=== PATIENT | female | born 1990 | race Caucasian/White ===

== ENCOUNTER 2016-05-25 10:22 | Emergency (ER) | payer OTHER ==
[~2016-05-25] VITALS: Ht 175.3 cm; Wt 87.7 kg
[2016-05-25 10:31] VITALS: TEMP 37.1; Ht 175.3 cm; Wt 87.7 kg
[2016-05-25] MEDS ORDERED: SODIUM CHLORIDE 0.9% 1000ML 2,000 ML IV STA (11:08)
[2016-05-25] MEDS ORDERED: MoRPHine SULFATE 4 MG/ML 1 ML CARP\\VIAL IV STA (11:08)
[2016-05-25] MEDS ORDERED: ONDANSETRON INJ 2 MG/ML 2 ML VIAL IV STA (11:08)
[2016-05-25] MEDS ORDERED: KETOROLAC TROMETHAMINE 30 MG/ML VIAL IV STA (11:08)
[2016-05-25 11:40] LABS: URINE APPEARANCE CLEAR (CLEAR); URINE BILIRUBIN NEG (NEG); URINE COLOR YELLOW; URINE NITRITE POS (NEG); UROBILINOGEN NEG (NEG)
[2016-05-25 11:44] LABS: MANUAL MICROSCOPIC REQUIRED? NO; REVIEW REQ? NO
[2016-05-25] MEDS ORDERED: CIPROFLOXACIN 400MG / 200ML D5W IV STA (11:48)
[2016-05-25 12:02] LABS: BASO % 0.2 %; BASO ABS # 0.02 K/uL (0-0.2); COMPLETE YES; EOS % 1.1 %; HEMATOCRIT 36.4 % (37-47); IG% 0.3 %; LYMPH % 6.8 %; LYMPH ABS # 0.87 K/uL (1.2-3.4); MEAN CELL VOLUME 83.7 fL (80-100); MEAN CORPUSCULAR HEMOGLOBIN 28.5 pg (25-34); MEAN CORPUSCULAR HGB CONC 34.1 g/dl (32-36); MEAN PLATELET VOLUME 9.4 fL (7.4-10.4); MONO % 5.4 %; NEUT % 86.2 %; PLATELET COUNT 222 K/uL (130-400); RED BLOOD COUNT 4.35 M/uL (4.2-5.4)
[2016-05-25 12:23] LABS: BUN/CREATININE RATIO 14.9 (10-20); CALCIUM 8.5 mg/dl (8.5-10.1); CREATININE 0.91 mg/dl (0.60-1.20); POTASSIUM 4.6 mmol/L (3.5-5.1)
[2016-05-25] MEDS ORDERED: MoRPHine SULFATE 10 MG/ML CARP/VIAL IV STA (12:48)
[2016-05-25] MEDS ORDERED: ONDA4TAB10 SL (12:55)
[2016-05-25] MEDS ORDERED: OXYC1TAB3 PO (12:55)
[2016-05-25] MEDS ORDERED: CIPR-255 PO (12:55)
--- NOTE | 2016-05-25 12:55 | EMERGENCY ROOM VISIT NOTE ---
ED Visit Note First contact with patient: 10:46 CHIEF COMPLAINT: Right flank pain and urinary symptoms 3-4 days. HISTORY OF PRESENT ILLNESS: Patient is an otherwise healthy 26-year-old white female who presents to the emergency department accompanied by a male friend for evaluation of right flank pain and urinary symptoms. She states that she was treated with Macrobid and Pyridium for a UTI on May 13. She had urinary frequency, urgency and gross hematuria at that time. She had developed some low back pain at the time that she started the antibiotics, but reports that her symptoms got better. She did 5 days of Macrobid. She states that after finishing the antibiotics, she felt better for a few days, then noted a return of cloudy urine, and some dysuria with associated frequency and urgency. She has had progressively worsening stabbing right back pain. It is worse with pressure or with movement. It does not radiate to the flank or abdomen. She began to run a low-grade fever over the last 1-2 days. Temperature was 100.7F orally yesterday. She's been taking Tylenol and ibuprofen for her pain. She rates her discomfort a 6/10. She does have a remote history of kidney stones, and reports urinary problems when she was a child. She denies a history of frequent UTIs or pyelonephritis. She denies any gynecologic symptoms. Last menstrual period was 3 weeks ago. 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 REVIEW OF SYSTEMS: Review of systems as per HPI. All other systems reviewed were negative. 10 systems reviewed. PMH: Electronic medical records are reviewed and summarized as above/below. See Problem List. SOCIAL HISTORY: Patient lives at home. Law school student. Nonsmoker. PHYSICAL EXAM: Vital Signs: Reviewed Nurse's notes. Patient is afebrile. She is slightly tachycardic. CONSTITUTIONAL: Patient is an uncomfortable appearing 26-year-old white female who is awake and alert and in moderate distress due to her right back pain. EYES: Pupils equal, round, reactive to light and accommodation. EOMs intact without nystagmus. Sclera are anicteric. ENT: Tympanic membranes intact, with normal landmarks. External canals are clear. Oral and nasopharynx are clear. Mucous membranes are moist, no lesions , tongue and gums appear normal. NECK: Supple without lymphadenopathy. No thyromegaly. No meningeal signs. Full active range of motion without discomfort. CARDIOVASCULAR: Regular rate and rhythm, with normal S1 and S2, no murmur or gallop or rub is heard. No carotid bruits auscultated. No JVD. Peripheral pulses easily palpable. RESPIRATORY: Breath sounds equal and clear to auscultation without wheezes, rales, or rhonchi heard. Full and equal chest expansion without accessory muscle use or retractions. ABDOMEN: Bowel sounds are present. Well-healed midline surgical scar is noted. Abdomen is soft, nontender and nondistended. Positive right CVA discomfort. INTEGUMENTARY: No lesions or rash, normal skin turgor. LYMPH: No lymphadenopathy. EMERGENCY DEPARTMENT COURSE: The patient was seen and assessed as above. She has no old records for review. IV access was obtained and she was hydrated with normal saline solution. She was medicated with Toradol 30 mg IV, Zofran 4 mg IV, a total of morphine 10 mg IV and Cipro 400 mg IV. CBC with differential , BMP, urinalysis, urine test and urine culture were performed. Laboratory studies reveal a slightly elevated white count at 12,800, electrolytes are within normal limits. Renal function is not elevated. Urinalysis is indicative of infectious process with 2+ occult blood, positive nitrates, leukocyte esterase and WBCs, and 4+ bacteria. Urine test was negative. Urine culture is ordered and is pending. History and presentation were reviewed with attending physician. Her presentation does appear consistent for a pyelonephritis. She does not have significant hematuria on urinalysis, and it was thought that kidney stone was less likely, particularly given the UTI prodromal symptoms over the last couple of weeks. She is slightly tachycardic, but afebrile and otherwise nontoxic in appearance. She has a benign abdominal exam. She is tolerating oral intake. It was felt that she was an appropriate candidate for outpatient therapy. Due to her allergy profile she will be placed on oral Cipro. She was given oxycodone and Zofran for pain and nausea and will continue Tylenol and ibuprofen for fever and pain management. She is unaware of the reaction she had to penicillins and is not sure if she has ever had cephalosporins in the past. Should she fail outpatient management on Cipro, the allergy profile will likely need to be clarified. The patient was discharged to home with her male friend driving in good condition. She was educated on the worrisome signs or symptoms for which she should return to the emergency department. She is discharged home in stable condition. She rated her pain a 4/10 at discharge. Differential diagnoses include UTI, pyelonephritis, renal colic, muscular strain , intercostal neuritis, rib fracture, shingles, acute cholecystitis, cholelithiasis, biliary colic, among others. Problem List Medical Problems: (1) ADD (attention deficit disorder) Status: Chronic (2) Benign tumor of mesentery Status: Resolved Surgical Problems: (1) History of exploratory laparotomy Status: Resolved (2) Hx of tonsillectomy Status: Resolved Current/Historical Medications Scheduled Ciprofloxacin Hcl (Cipro), 500 MG PO BID Scheduled PRN Ondasetron Odt (Zofran Odt), 4 MG SL Q6H PRN for Nausea or Vomiting Oxycodone Immediate Rel Tab (Roxicodone Ir), 1-2 TAB PO Q4H PRN for Severe Pain Allergies Coded Allergies: Penicillins (Unverified Allergy, Severe, CHILDHOOD ALLERGY, SEVERE, WAS HOSPITALIZED., 05/25/16) CHILDHOOD ALLERGY, SEVERE, WAS HOSPITALIZED. Sulfa Antibiotics (Unverified Allergy, Severe, CHILDHOOD ALLERGY, SEVERE, WAS HOSPITALIZED., 05/25/16) CHILDHOOD ALLERGY, SEVERE, WAS HOSPITALIZED. Vital Signs Date Time Temp Pulse Resp B/P Pulse Ox O2 Delivery O2 Flow Rate FiO2 05/25/16 13:35 98 18 117/70 99 05/25/16 11:58 94 16 116/61 05/25/16 10:31 37.1 111 18 127/78 100 Room Air Laboratory Results 05/25/16 11:40 Red Blood Count 4.35, Mean Corpuscular Volume 83.7, Mean Corpuscular Hemoglobin 28.5, Mean Corpuscular Hemoglobin Concent 34.1, Mean Platelet Volume 9.4, Neutrophils (%) (Auto) 86.2, Lymphocytes (%) (Auto) 6.8, Monocytes (%) (Auto) 5.4, Eosinophils (%) (Auto) 1.1, Basophils (%) (Auto) 0.2, Neutrophils # (Auto) 11.04, Lymphocytes # (Auto) 0.87, Monocytes # (Auto) 0.69, Eosinophils # (Auto) 0.14, Basophils # (Auto) 0.02 05/25/16 11:40 Test 05/25/16 11:05 05/25/16 11:40 Urine Color YELLOW Urine Appearance CLEAR (CLEAR) Urine pH 8.0 (4.5-7.5) Urine Specific [place] 1.010 (1.000-1.030) Urine Protein NEG (NEG) Urine Glucose (UA) NEG (NEG) Urine Ketones NEG (NEG) Urine Occult Blood 2+ (NEG) Urine Nitrite POS (NEG) Urine Bilirubin NEG (NEG) Urine Urobilinogen NEG (NEG) Urine Leukocyte Esterase LARGE (NEG) Urine WBC (Auto) >30 /hpf (0-5) Urine RBC (Auto) 0-4 /hpf (0-4) Urine Hyaline Casts (Auto) 5-10 /lpf (0-5) Urine Epithelial Cells (Auto) 10-20 /lpf (0-5) Urine Bacteria (Auto) 4+ (NEG) Urine Test NEG (NEG) White Blood Count 12.80 K/uL (4.8-10.8) Red Blood Count 4.35 M/uL (4.2-5.4) Hemoglobin 12.4 g/dL (12.0-16.0) Hematocrit 36.4 % (37-47) Mean Corpuscular Volume 83.7 fL (80-100) Mean Corpuscular Hemoglobin 28.5 pg (25-34) Mean Corpuscular Hemoglobin Concent 34.1 g/dl (32-36) Platelet Count 222 K/uL (130-400) Mean Platelet Volume 9.4 fL (7.4-10.4) Neutrophils (%) (Auto) 86.2 % Lymphocytes (%) (Auto) 6.8 % Monocytes (%) (Auto) 5.4 % Eosinophils (%) (Auto) 1.1 % Basophils (%) (Auto) 0.2 % Neutrophils # (Auto) 11.04 K/uL (1.4-6.5) Lymphocytes # (Auto) 0.87 K/uL (1.2-3.4) Monocytes # (Auto) 0.69 K/uL (0.11-0.59) Eosinophils # (Auto) 0.14 K/uL (0-0.5) Basophils # (Auto) 0.02 K/uL (0-0.2) RDW Standard Deviation 41.3 fL (36.4-46.3) RDW Coefficient of Variation 13.7 % (11.5-14.5) Immature Granulocyte % (Auto) 0.3 % Immature Granulocyte # (Auto) 0.04 K/uL (0.00-0.02) Anion Gap 6.0 mmol/L (3-11) Est Creatinine Clear Calc Drug Dose 110.7 ml/min Estimated GFR () 100.9 Estimated GFR (Non- 87.1 BUN/Creatinine Ratio 14.9 (10-20) Calcium Level 8.5 mg/dl (8.5-10.1) Medications Administered Medications (Trade) Dose Ordered Sig/Arnoldo Route Start Time Stop Time Status Last Admin Dose Admin Sodium Chloride (Nss 1000ml) 2,000 ml @ 999 mls/hr Q2H1M STAT IV 05/25/16 11:08 05/25/16 13:08 DC 05/25/16 11:08 999 MLS/HR Ketorolac Tromethamine (Toradol Inj) 30 mg NOW STAT IV 05/25/16 11:08 05/25/16 11:10 DC 05/25/16 11:37 30 MG Morphine Sulfate (MoRPHine SULFATE INJ) 4 mg NOW STAT IV 05/25/16 11:08 05/25/16 11:10 DC 05/25/16 11:37 4 MG Ondansetron HCl (Zofran Inj) 4 mg NOW STAT IV 05/25/16 11:08 05/25/16 11:10 DC 05/25/16 11:37 4 MG Ciprofloxacin/ Dextrose (Cipro / D5w) 400 mg NOW STAT IV 05/25/16 11:48 05/25/16 11:52 DC 05/25/16 12:00 400 MG Morphine Sulfate (MoRPHine SULFATE INJ) 6 mg NOW STAT IV 05/25/16 12:48 05/25/16 12:49 DC 05/25/16 13:14 6 MG Departure Information Impression Primary Impression: Pyelonephritis Prescriptions Ondasetron Odt (ZOFRAN ODT) 4 Mg Tab 4 MG SL Q6H Y for Nausea or Vomiting, #10 TAB Prov: Giovana Posadas PA 05/25/16 Ciprofloxacin Hcl (CIPRO) 500 Mg Tab 500 MG PO BID, #20 TAB Prov: Giovana Posadas PA 05/25/16 Oxycodone Immediate Rel Tab (ROXICODONE IR) 5 Mg Tab 1-2 TAB PO Q4H Y for Severe Pain, #25 TAB For Initial Treatment Prov: Giovana Posadas PA 05/25/16 Referrals No Doctor, Assigned (PCP) Patient Instructions A Signature Page, My [facility] Additional Instructions DO NOT drive, drink alcohol, operate machinery, or perform dangerous activities today. You were given medications in the ER that can affect your ability to safely function or operate a vehicle. Ciprofloxacin(Cipro) 500mg: Take one pill twice daily for 10 days for your urine infection. All antibiotics can cause diarrhea. If this occurs and you feel worse or it does not resolve in 1-2 days follow up with your doctor or return to the Emergency Department as this could be signs of serious underlying problems. If you experience any pain in your tendons/joints or any tendon injury return to the ER for re-evaluation. Any medication can cause an allergic reaction, stop the pills immediately and return to the ER for rash, hives, breathing difficulties, or swelling. Zofran(odansetron) tablets 4mg: Take one and allow it to dissolve in your mouth every four hours as needed for nausea or vomiting. Oxycodone (OxyIR) 5mg: Take 1-2 pills every four hours as needed for breakthrough pain. Avoid alcohol, operating machinery or dangerous equipment, working on ladders or roofs, DRIVING, making important decisions, or situations where being under the influence may be dangerous. It is recommended to use an [id number] stool softener such as Colace, 100mg twice daily while taking this medication to avoid constipation. Ibuprofen(Motrin, Advil) may be used for fever or pain. Use 600mg every six hours as needed. Take with food. Avoid using more than 2400mg in a 24 hour period. Do not use 2400mg per day for more than three consecutive days without physician direction. Prolonged inappropriate use can lead to stomach upset or ulcers. This is available over the counter and typically comes in 200mg tablets. (AND/OR) Acetaminophen(Tylenol) may be used for fever or pain. Use 1000mg every eight hours as needed. Avoid using more than 3000mg in a 24 hour period. This is available over the counter. Read all the package inserts or medication information paperwork provided. If you have any questions or concerns call your primary provider, pharmacist or the ER for assistance. Rest and drink plenty of fluids as tolerated. Slow sips of water or sports drinks are recommended instead of large amounts all at once. Continue current medications. Once your stomach is settled start with a clear liquid diet (jello, soup broth, etc.) and then advance as tolerated. You should avoid full, heavy meals for about 24 hrs from the time your symptoms resolved. Return to the ER immediately for worsening or persistent abdominal/back pain, vomiting, fevers, worsening of your condition, or as needed. Follow up with your primary physician within 2-3 days for a recheck of the current condition
[2016-05-25 13:35] VITALS: BP 117/70; PULSE 98; O2SAT 99
[2016-05-25] MEDS ORDERED: AMPH20TA2 PO (17:42)
[2016-06-03] MEDS ORDERED: B-COTAB18 PO (07:48)
[2016-06-03] MEDS ORDERED: MULT-506 PO (07:48)
[2016-06-03] MEDS ORDERED: CPR500 PO (07:49)
[2016-06-06] MEDS ORDERED: OXYC7.5T65 PO (10:17)
== END 2016-05-25 13:36 | disposition home or self-care (01) ==
LOC: C.EDB 10:24
DX: N12 Tubulo-interstitial nephritis, not specified as acute or chronic (principal); A49.8 Other bacterial infections of unspecified site; F90.9 Attention-deficit hyperactivity disorder, unspecified type

== ENCOUNTER 2016-05-25 16:01 | Inpatient (IN) | payer OTHER ==
[~2016-05-25] VITALS: Ht 175.3 cm; Wt 89.7 kg
[~2016-05-25 16:01] MED LIST: CIPR-255 PO; ONDA4TAB10 SL; OXYC1TAB3 PO
[2016-05-25] MEDS ORDERED: VANCOMYCIN INJ 1,350 MG in SODIUM CHLORIDE 0.9% 250ML 250 ML IV STA (16:58)
[2016-05-25] MEDS ORDERED: SODIUM CHLORIDE 0.9% 1000ML 2,000 ML IV STA (16:58)
[2016-05-25] MEDS ORDERED: ONDANSETRON INJ 2 MG/ML 2 ML VIAL IV STA (16:58)
[2016-05-25] MEDS ORDERED: AZTREONAM IV 2,000 MG in DEXTROSE 5% 100ML 100 ML IV STA (16:58)
[2016-05-25] MEDS ORDERED: ACETAMINOPHEN IV 100 ML IV STA (16:58)
[2016-05-25] MEDS ORDERED: AMPH20TA2 PO (17:42)
[2016-05-25 17:58] LABS: BASO ABS # 0.01 K/uL (0-0.2); COMPLETE YES; EOS % 0.1 %; HEMATOCRIT 36.3 % (37-47); IG% 0.4 %; LYMPH % 2.5 %; LYMPH ABS # 0.55 K/uL (1.2-3.4); MEAN CELL VOLUME 82.7 fL (80-100); MEAN CORPUSCULAR HEMOGLOBIN 28.2 pg (25-34); MEAN CORPUSCULAR HGB CONC 34.2 g/dl (32-36); MEAN PLATELET VOLUME 9.2 fL (7.4-10.4); MONO % 4.9 %; NEUT % 92.1 %; PLATELET COUNT 208 K/uL (130-400); RED BLOOD COUNT 4.39 M/uL (4.2-5.4); WHITE BLOOD COUNT 21.63 K/uL (4.8-10.8)
[2016-05-25 18:06] LABS: ALT/SGPT 18 U/L (12-78); BLOOD UREA NITROGEN 13 mg/dl (7-18); BUN/CREATININE RATIO 12.8 (10-20); CALCIUM 8.4 mg/dl (8.5-10.1); CARBON DIOXIDE 23 mmol/L (21-32); CHLORIDE 104 mmol/L (98-107); CREATININE 0.99 mg/dl (0.60-1.20); GLUCOSE 107 mg/dl (70-99); SODIUM 139 mmol/L (136-145)
[2016-05-25 18:10] LABS: ALKALINE PHOSPHATASE 56 U/L (45-117); AST/SGOT 13 U/L (15-37)
[2016-05-25 18:27] LABS: URINE APPEARANCE CLOUDY (CLEAR); URINE BILIRUBIN NEG (NEG); URINE COLOR DK YELLOW; URINE EPITHELIAL CELL AUTO >30 /lpf (0-5); URINE NITRITE NEG (NEG); URINE SPECIFIC GRAVITY 1.018 (1.000-1.030); UROBILINOGEN NEG (NEG); ZZUR CULT IF INDIC CLEAN CATCH YES
[2016-05-25 18:32] LABS: MANUAL MICROSCOPIC REQUIRED? NO; REVIEW REQ? YES
--- NOTE | 2016-05-25 18:50 | EMERGENCY ROOM VISIT NOTE ---
History Report prepared by Petty: Gerson Kerns Under the Supervision of: Dr. Gato Keller M.D. First contact with patient: 16:50 Chief Complaint: ALLERGIC REACTION Stated Complaint: ALLERGIC REACTION Nursing Triage Summary: Pt states she was here early today for kidney infection. They prescribed Cipro, when she got home was shaking and has has numbness and tingling in bilateral hands. Nausea. No c/o itchy, scratchy, swelling in throat/mouth. History of Present Illness The patient is a 26 year old female who presents to the Emergency Room with complaints of a intermittent shakiness beginning just prior to arrival. She was seen in the ED earlier today and was diagnosed with a UTI. She was discharged with Cipro. The patient states that upon arriving home, she began experiencing her symptoms. She has associated nausea, right flank pain and leg numbness. The patient notes that her urinary symptoms began over a week ago, and she was initially on Macrobid. She denies any rashes, vomiting or diarrhea. Source of History: patient Onset: just prior to arrival Quality: other (shakiness) Timing: intermittent Associated Symptoms: + nausea, + numbness (leg), No diarrhea, No rash, No vomiting Note: The patient has associated right flank pain. Review of Systems See HPI for pertinent positives & negatives. A total of 10 systems reviewed and were otherwise negative. Past Medical & Surgical Medical Problems: (1) ADD (attention deficit disorder) (2) Benign tumor of mesentery Surgical Problems: (1) History of exploratory laparotomy (2) Hx of tonsillectomy Family History No pertinent family history stated. Social History Smoking Status: Never Smoker Marital Status: in relationship Occupation Status: [employer] student ([employer]) Current/Historical Medications Scheduled Ciprofloxacin Hcl (Cipro), 500 MG PO BID Scheduled PRN Amphetamine-Dextroamphetamine 20MG (Adderall 20MG), 20 MG PO TID PRN for Focus Ondasetron Odt (Zofran Odt), 4 MG SL Q6H PRN for Nausea or Vomiting Oxycodone Immediate Rel Tab (Roxicodone Ir), 1-2 TAB PO Q4H PRN for Severe Pain Allergies Coded Allergies: Penicillins (Unverified Allergy, Severe, CHILDHOOD ALLERGY, SEVERE, WAS HOSPITALIZED., 05/25/16) CHILDHOOD ALLERGY, SEVERE, WAS HOSPITALIZED. Sulfa Antibiotics (Unverified Allergy, Severe, CHILDHOOD ALLERGY, SEVERE, WAS HOSPITALIZED., 05/25/16) CHILDHOOD ALLERGY, SEVERE, WAS HOSPITALIZED. Physical Exam Vital Signs Date Time Temp Pulse Resp B/P Pulse Ox O2 Delivery O2 Flow Rate FiO2 05/25/16 18:22 132 05/25/16 18:17 135 22 133/76 97 Room Air 05/25/16 16:08 100 Room Air 05/25/16 16:05 38.2 153 18 117/54 99 Room Air Physical Exam GENERAL: Patient is ill appearing and in moderate distress. HEENT: No acute trauma, normocephalic atraumatic, mucous membranes moist, no nasal congestion, no scleral icterus. NECK: No stridor, no adenopathy, no meningismus, trachea is midline. LUNGS: No dyspnea. Clear to auscultation and equal bilaterally. No wheeze, no rhonchi. HEART: Tachycardic rate with a regular rhythm. No murmurs, rubs, gallops appreciated. ABDOMEN: Soft, nontender, bowel sounds positive, no masses appreciated, no peritonitis. BACK: No midline tenderness. Right CVA tenderness to palpation. EXTREMITIES: Normal motion all extremities, no cyanosis, no edema. NEUROLOGIC: Alert and oriented, no acute motor or sensory deficits, no focal weakness, cranial nerves grossly intact. SKIN: No rash, no jaundice, no diaphoresis. Warm to the touch. Medical Decision & Procedures Laboratory Results 05/25/16 17:10 Red Blood Count 4.39, Mean Corpuscular Volume 82.7, Mean Corpuscular Hemoglobin 28.2, Mean Corpuscular Hemoglobin Concent 34.2, Mean Platelet Volume 9.2, Neutrophils (%) (Auto) 92.1, Lymphocytes (%) (Auto) 2.5, Monocytes (%) (Auto) 4.9, Eosinophils (%) (Auto) 0.1, Basophils (%) (Auto) 0.0, Neutrophils # (Auto) 19.91, Lymphocytes # (Auto) 0.55, Monocytes # (Auto) 1.06, Eosinophils # (Auto) 0.02, Basophils # (Auto) 0.01 05/25/16 17:10 Test 05/25/16 17:10 05/25/16 17:19 05/25/16 18:15 White Blood Count 21.63 K/uL (4.8-10.8) Red Blood Count 4.39 M/uL (4.2-5.4) Hemoglobin 12.4 g/dL (12.0-16.0) Hematocrit 36.3 % (37-47) Mean Corpuscular Volume 82.7 fL (80-100) Mean Corpuscular Hemoglobin 28.2 pg (25-34) Mean Corpuscular Hemoglobin Concent 34.2 g/dl (32-36) Platelet Count 208 K/uL (130-400) Mean Platelet Volume 9.2 fL (7.4-10.4) Neutrophils (%) (Auto) 92.1 % Lymphocytes (%) (Auto) 2.5 % Monocytes (%) (Auto) 4.9 % Eosinophils (%) (Auto) 0.1 % Basophils (%) (Auto) 0.0 % Neutrophils # (Auto) 19.91 K/uL (1.4-6.5) Lymphocytes # (Auto) 0.55 K/uL (1.2-3.4) Monocytes # (Auto) 1.06 K/uL (0.11-0.59) Eosinophils # (Auto) 0.02 K/uL (0-0.5) Basophils # (Auto) 0.01 K/uL (0-0.2) RDW Standard Deviation 41.4 fL (36.4-46.3) RDW Coefficient of Variation 13.6 % (11.5-14.5) Immature Granulocyte % (Auto) 0.4 % Immature Granulocyte # (Auto) 0.08 K/uL (0.00-0.02) Anion Gap 12.0 mmol/L (3-11) Est Creatinine Clear Calc Drug Dose 102.8 ml/min Estimated GFR () 91.2 Estimated GFR (Non- 78.6 BUN/Creatinine Ratio 12.8 (10-20) Calcium Level 8.4 mg/dl (8.5-10.1) Total Bilirubin 0.7 mg/dl (0.2-1) Direct Bilirubin 0.2 mg/dl (0-0.2) Aspartate Amino Transf (AST/SGOT) 13 U/L (15-37) Alanine Aminotransferase (ALT/SGPT) 18 U/L (12-78) Alkaline Phosphatase 56 U/L (45-117) Troponin I < 0.015 ng/ml (0-0.045) Total Protein 6.8 gm/dl (6.4-8.2) Albumin 3.4 gm/dl (3.4-5.0) Bedside Lactic Acid Venous 1.60 mmol/L (0.90-1.70) Urine Color DK YELLOW Urine Appearance CLOUDY (CLEAR) Urine pH 5.0 (4.5-7.5) Urine Specific [place] 1.018 (1.000-1.030) Urine Protein 1+ (NEG) Urine Glucose (UA) NEG (NEG) Urine Ketones NEG (NEG) Urine Occult Blood 2+ (NEG) Urine Nitrite NEG (NEG) Urine Bilirubin NEG (NEG) Urine Urobilinogen NEG (NEG) Urine Leukocyte Esterase LARGE (NEG) Urine WBC (Auto) >30 /hpf (0-5) Urine RBC (Auto) 0-4 /hpf (0-4) Urine Hyaline Casts (Auto) 1-5 /lpf (0-5) Urine Epithelial Cells (Auto) >30 /lpf (0-5) Urine Bacteria (Auto) 1+ (NEG) Urine Yeast (Auto) (NONE PRSENT) Laboratory results as reviewed by me. Medications Administered Medications (Trade) Dose Ordered Sig/Arnoldo Route Start Time Stop Time Status Last Admin Dose Admin Sodium Chloride 2,000 ml @ 999 mls/hr Q2H1M STAT IV 05/25/16 16:58 05/25/16 18:58 DC 05/25/16 18:08 999 MLS/HR Acetaminophen (Ofirmev Iv) 100 ml @ 400 mls/hr NOW STAT IV 05/25/16 16:58 05/25/16 17:12 DC 05/25/16 18:05 400 MLS/HR Ondansetron HCl 4 mg 4 mg NOW STAT IV 05/25/16 16:58 05/25/16 17:01 DC 05/25/16 18:08 4 MG Aztreonam 2000 mg/ Dextrose 110 ml @ 100 mls/hr NOW STAT IV 05/25/16 16:58 05/25/16 18:03 DC 05/25/16 18:08 100 MLS/HR Vancomycin HCl/ Sodium Chloride (Vancomycin Inj/ Nss 250ml) 277 ml @ 125 mls/hr NOW STAT IV 05/25/16 16:58 05/25/16 19:10 DC 05/25/16 18:05 125 MLS/HR ED Course 165: The patient was evaluated in room B9. A complete history and physical exam was performed. 165: Ordered Vancomycin HCl 1350 mg/NSS 277 mL @ 125 mL/hr IV, Aztreonam 2000 mg/Dextrose 110 mL @ 100 mL/hr IV, Zofran 4 mg IV, Acetaminophen 100 mL @ 400 mL /hr IV, NSS 2000 mL @ 999 mL/hr IV. 1700: I discussed getting two IVs placed in the patient with nursing staff. 180: I reassessed the patient. She is feeling better. 181: Upon reevaluation, the patient is resting comfortably. Discussed results and treatment plan with the patient. She verbalized understanding and agreement with the treatment plan. The patient will be evaluated for further management. Medical Decision Differential: Renal Colic, Pyelonephritis, Hydronephrosis, Appendicitis, Diverticulitis, Retroperitoneal Bleed/Infection, Aortic Pathology, MSK, Neurologic Pathology, amongst other pathologies entertained. 26 yr old pleasant female diagnosed earlier in day with pyelonephritis and started on cipro. Feeling well and wanted to try outpatient treatment. Notes on awakening just a bit ago with rigors. Does not sound like allergic reaction. She is febrile and tachycardic. Immediately obtained 2 IVs, blood cultures and started broad spectrum ABX. Fluid resus ordered as well. Right CVA TTP and with dirty urine very clearly pyelonephritis. She does not exhibit symptoms consistent with renal stone thus will hold on acute immaging for now while sepsis resus started. Lactic acid and BP good here fortunately. She is quite sick, especially given how rapidly this has progressed from just a few hours earlier. Consults Time Called: 1807 Consulting Physician: [place] [place] Call: 1812 Discussed the patient's case. The patient will be evaluated for further treatment and disposition. Impression Primary Impression: Sepsis Additional Impression: Pyelonephritis Critical Care I have personally spent greater than 35 minutes of critical care time in the direct management of this patient. This was a life/limb threatening event. This includes time spent evaluating patient, direct bedside care, chart review, placing orders, interpretation of diagnostic studies, discussion with consultants, patient, and family members, as well as other required patient management activities. This 35 minutes is in excess of all separately billable procedures. Scribe Attestation The scribe's documentation has been prepared under my direction and personally reviewed by me in its entirety. I confirm that the note above accurately reflects all work, treatment, procedures, and medical decision making performed by me. Departure Information Dispostion Being Evaluated By Hospitalist Referrals No Doctor, Assigned (PCP) Patient Instructions A Signature Page, My [facility]
[2016-05-25 19:04] LABS: POTASSIUM 3.7 mmol/L (3.5-5.1)
[2016-05-25] MEDS ORDERED: MoRPHine SULFATE 4 MG/ML 1 ML CARP\\VIAL IV PRN (19:15)
[2016-05-25] MEDS ORDERED: VANCOMYCIN INJ 0 MG in SODIUM CHLORIDE 0.9% 500ML 500 ML IV SCH (19:30)
[2016-05-25 20:25] VITALS: BP 122/78; PULSE 98; TEMP 36.8; O2SAT 97
[2016-05-25 20:29] LABS: INR 1.1 (0.9-1.1); PROTHROMBIN TIME (PATIENT) 11.8 SECONDS (9.0-12.0)
[2016-05-25] MEDS ORDERED: VANCOMYCIN CONSULT ACTIVE PRN (20:45)
--- NOTE | 2016-05-25 20:55 | Pharmacy Progress Note ---
Pharmacy Antibiotic Consult Date of Service: May 25, 2016. Pharmacy Dosing Scope Pharmacy is consulted to initiate Vanco IV dosing therapy, order appropriate labs and adjust drug dose/frequency. Subjective The patient is a 26 year old female admitted on May 25, 2016 at 19:18. Objective Height (Feet): 5 Height (Inches): 9.00 Weight (Kilograms): 89.700 Lab Results (24hrs): Item Value Date Time Creatinine 0.99 mg/dl 05/25/16 1710 Est Creatinine Clear Calc Drug Dose 102.8 ml/min 05/25/16 171 Laboratory Tests Test 05/25/16 17:10 BUN/Creatinine Ratio 12.8 Blood Urea Nitrogen 13 mg/dl Creatinine 0.99 mg/dl White Blood Count 21.63 K/uL Red Blood Count 4.39 M/uL Hemoglobin 12.4 g/dL Hematocrit 36.3 % Mean Corpuscular Volume 82.7 fL Mean Corpuscular Hemoglobin 28.2 pg Mean Corpuscular Hemoglobin Concent 34.2 g/dl Platelet Count 208 K/uL Mean Platelet Volume 9.2 fL Neutrophils (%) (Auto) 92.1 % Lymphocytes (%) (Auto) 2.5 % Monocytes (%) (Auto) 4.9 % Eosinophils (%) (Auto) 0.1 % Basophils (%) (Auto) 0.0 % Neutrophils # (Auto) 19.91 K/uL Lymphocytes # (Auto) 0.55 K/uL Monocytes # (Auto) 1.06 K/uL Eosinophils # (Auto) 0.02 K/uL Basophils # (Auto) 0.01 K/uL Micro Results: Item Value Date Time Blood Culture Received 05/25/16 1730 Blood Pending Blood Culture Received 05/25/16 1710 Blood Pending Recent Pertinent Medications cipro Assessment & Plan Pt is a 26yo F p/w with shakiness, R flank pxn, and leg numbness. She was diagnosed w/ a UTI earlier today and d/c'd on Cipro. She was taking macrobid a week ago when her symptoms began. Pt population p'kinetics: t1/2=7.7hrs, ke= 0.089. BC are pending in computer. Vanco Loading dose: 1350mg (15mg/kg) IV in ED and set to receive additional 900mg ( 10mg/kg) IV X 1 dose then: Vanco 1300mg (15mg/kg) IV every 9 hours. Goal trough level estimate: between 15 - 20 mcg/mL. Trough or random level has been ordered for: . Aztreonam - not consulted Received 2g one time dose at 1800 Set to receive subsequent doses of 1g Q8 starting at 0000 on 05/26/16 Thank you for consulting the pharmacy kinetic team and including us in the care of Ms. Nguyen. Pharmacy will continue to follow and will adjust dose/frequency as necessary. Thank you
[2016-05-25] MEDS: ENOXAPARIN 40 MG/0.4 ML SYR SQ SCH (21:00)
[2016-05-25] MEDS ORDERED: VANCOMYCIN INJ 900 MG in SODIUM CHLORIDE 0.9% 250ML 250 ML IV ONE (21:00)
--- NOTE | 2016-05-25 21:10 | History and Physical ---
History & Physical H&P dictated. #[id number].
[2016-05-25] MEDS: SODIUM CHLOR 0.45% + 20MEQ KCL 1,000 ML IV SCH (21:57)
--- NOTE | 2016-05-25 21:59 | HISTORY & PHYSICAL EXAMINATION ---
DATE OF ADMISSION: 05/25/2016 CHIEF COMPLAINT: Right flank pain and nausea. HISTORY OF PRESENT ILLNESS: This 26-year-old female presented to the Emergency Department after she was seen earlier on this day and diagnosed with a UTI in which she was discharged on oral Cipro. As she arrived home, she began to have increased nausea, right flank pain and started to have shaking chills. She was treated for urinary symptoms approximately a week ago and was given Macrobid at that time. She did feel nausea today. No vomiting, no diarrhea. She was concerned that she was having an allergic reaction but it was felt from listening to her history both by me and the ER physician that she was experiencing rigors. PAST MEDICAL HISTORY: Significant for attention deficit disorder, she had a benign tumor of mesentery. PAST SURGICAL HISTORY: History of exploratory lap and tonsillectomy. FAMILY HISTORY: No pertinent history to be reported. 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 She is single but in a relationship. Does not smoke, does not use alcohol or illicit substances. MEDICATIONS: Her current home medications are Adderall 20 mg t.i.d. as needed for concentration and she had been placed on Cipro 500 mg b.i.d., given Zofran 4 mg sublingually p.r.n. nausea and vomiting, and Roxicodone 1-2 tabs every 4 hours as needed for the severe pain. ALLERGIES: SHE LISTS ALLERGIES TO PENICILLIN AND TO SULFA ANTIBIOTICS. REVIEW OF SYSTEMS: A total of 10 systems are reviewed, all of which were negative. I placed the positives in the HPI. PHYSICAL EXAMINATION: VITAL SIGNS: Temperature was 38.2 with a pulse of 153, respiratory rate of 18, blood pressure 117/54, pulse ox 99% on room air. GENERAL: The patient is awake, alert and oriented x3, in mild distress secondary to pain and nausea. HEENT: TMs intact. No inflammation. Extraocular muscles intact. Pupils equal, round and react to light and accommodation. Mucous membranes are moist. Throat is clear. NECK: No JVD or lymphadenopathy. LUNGS: Clear to auscultation bilaterally. No rales, rhonchi or wheezes. HEART: Regular, normal S1, S2, without murmurs, rubs or gallops. ABDOMEN: Soft. She did have positive right costovertebral angle tenderness with palpation. Positive bowel sounds. EXTREMITIES: No clubbing, cyanosis or edema. NEUROLOGIC: Cranial nerves II-XII are grossly intact and nonfocal. SKIN: Warm and dry without rash or hive. PSYCHIATRIC: The patient is pleasant and cooperative. LABORATORY DATA: White blood cell count is 21.63, hemoglobin 12.4, hematocrit 36.3, platelet count of 208. INR of 1.1. Sodium 139, potassium 3.7, chloride 104, CO2 23, BUN 13, creatinine 0.99, random glucose was 107, AST of 13, ALT of 18. Urinalysis showed +2 blood, large leukocyte esterase, greater than 30 WBCs, 1+ urine bacteria. Blood cultures are pending at this time. ASSESSMENTAND PLAN: The patient is assessed with pyelonephritis, failed outpatient therapy with essentially both Cipro and Macrobid. She experienced rigors and her white count had elevated even from being in the Emergency Department this morning. So she is admitted for IV antibiotics to at this time include aztreonam and IV vancomycin. She is given pain and nausea control. Infectious disease will be consulted. IV fluids. DVT prophylaxis in the form of TEDs, SCDs and subcutaneous Lovenox. I should also note that her lactic acid level was normal at 1.6.
[2016-05-25 22:30] VITALS: BP 122/78; PULSE 98; TEMP 36.8; Ht 175.3 cm; Wt 89.7 kg
[2016-05-25] MEDS: ONDANSETRON INJ 2 MG/ML 2 ML VIAL IV PRN (23:08)
[2016-05-25 23:15] VITALS: BP 124/75; PULSE 120; TEMP 37; O2SAT 100
[2016-05-25] MEDS: AZTREONAM IV 1,000 MG in DEXTROSE 5% 100ML IV SCH (23:55)
[2016-05-25] MEDS: ACETAMINOPHEN 325 MG TAB PO PRN (23:55)
[2016-05-26] VITALS (11 sets, daily range): BP systolic 107–114; BP diastolic 67–76; PULSE 86–91; TEMP 36.3–39.3; O2SAT 98–100
[2016-05-26] MEDS ORDERED: AZTREONAM IV 1,000 MG in DEXTROSE 5% 100ML 100 ML IV SCH (01:00)
[2016-05-26] MEDS: VANCOMYCIN INJ 1,300 MG in SODIUM CHLORIDE 0.9% 250ML 250 ML IV SCH ×3 (02:00→11:23)
[2016-05-26] MEDS: ACETAMINOPHEN 325 MG TAB PO PRN ×3 (03:47→18:04)
[2016-05-26] MEDS: SODIUM CHLOR 0.45% + 20MEQ KCL 1,000 ML IV SCH ×2 (04:27→12:46)
[2016-05-26] MEDS: KETOROLAC TROMETHAMINE 30 MG/ML VIAL IV. PRN ×3 (04:27→18:03)
[2016-05-26 07:55] LABS: BASO % 0.1 %; BASO ABS # 0.01 K/uL (0-0.2); COMPLETE YES; EOS % 0.1 %; HEMATOCRIT 31.5 % (37-47); IG% 0.3 %; LYMPH % 5.7 %; LYMPH ABS # 0.99 K/uL (1.2-3.4); MEAN CELL VOLUME 82.7 fL (80-100); MEAN CORPUSCULAR HEMOGLOBIN 28.3 pg (25-34); MEAN CORPUSCULAR HGB CONC 34.3 g/dl (32-36); MEAN PLATELET VOLUME 9.2 fL (7.4-10.4); MONO % 5.9 %; NEUT % 87.9 %; PLATELET COUNT 178 K/uL (130-400); RED BLOOD COUNT 3.81 M/uL (4.2-5.4); WHITE BLOOD COUNT 17.41 K/uL (4.8-10.8)
[2016-05-26] MEDS: AZTREONAM IV 1,000 MG in DEXTROSE 5% 100ML IV SCH ×2 (08:00→16:35)
[2016-05-26 08:27] LABS: BUN/CREATININE RATIO 11.3 (10-20); CALCIUM 7.9 mg/dl (8.5-10.1); CREATININE 0.87 mg/dl (0.60-1.20); POTASSIUM 3.6 mmol/L (3.5-5.1)
--- NOTE | 2016-05-26 10:11 | Hospitalist Progress Note ---
Hospitalist Progress Note Date of Service May 26, 2016. Subjective Pt evaluation today including: conversation w/ patient, physical exam, chart review, lab review, review of studies, review of inpatient medication list Patient did spike temperature last night. She reported rigors but felt those to be less intense than the previous night. No nausea. The right flank pain is reduced but still present. Nausea has resolved. Additional Comments: A 10 system review was performed and all were negative. Positives were placed in the subjective section. Objective Vital Signs Date Time Temp Pulse Resp B/P Pulse Ox O2 Delivery O2 Flow Rate FiO2 05/26/16 07:02 36.8 90 16 107/67 99 Room Air 05/26/16 05:16 37.7 05/26/16 04:30 39.1 05/26/16 03:47 38.2 05/26/16 01:15 37.8 05/26/16 00:00 Room Air 05/26/16 00:00 38.2 05/25/16 23:15 37.0 120 20 124/75 100 Room Air 05/25/16 22:30 36.8 98 18 122/78 Room Air 05/25/16 20:25 36.8 98 18 122/78 97 Room Air 05/25/16 20:06 105 18 128/77 97 05/25/16 18:22 132 05/25/16 18:17 135 22 133/76 97 Room Air 05/25/16 16:08 100 Room Air 05/25/16 16:05 38.2 153 18 117/54 99 Room Air Physical Exam Notes: GEN: Awake, alert, and oriented x 3. Not in acute distress HEENT: Tm's intact, no inflammation, EOMI, PERRLA, MMM Neck: Soft, supple Lungs: CTA b/l, no r/r/w Heart: REG, nrl S1S2 without murmurs, rubs or gallops Abdomen: Soft, NT, ND, + BS. Right costovertebral angle tenderness with palpation. (less than yesterday). EXT: No C/C/E NEURO: CN's II-XII grossly intact, non-focal Skin: warm, dry, no rashes PSYCH: pleasant, cooperative, no signs of significant anxiety or depression. Laboratory Results Last 24 Hours Test 05/25/16 17:10 05/25/16 17:19 05/25/16 18:15 05/25/16 20:10 White Blood Count 21.63 K/uL Red Blood Count 4.39 M/uL Hemoglobin 12.4 g/dL Hematocrit 36.3 % Mean Corpuscular Volume 82.7 fL Mean Corpuscular Hemoglobin 28.2 pg Mean Corpuscular Hemoglobin Concent 34.2 g/dl Platelet Count 208 K/uL Mean Platelet Volume 9.2 fL Neutrophils (%) (Auto) 92.1 % Lymphocytes (%) (Auto) 2.5 % Monocytes (%) (Auto) 4.9 % Eosinophils (%) (Auto) 0.1 % Basophils (%) (Auto) 0.0 % Neutrophils # (Auto) 19.91 K/uL Lymphocytes # (Auto) 0.55 K/uL Monocytes # (Auto) 1.06 K/uL Eosinophils # (Auto) 0.02 K/uL Basophils # (Auto) 0.01 K/uL RDW Standard Deviation 41.4 fL RDW Coefficient of Variation 13.6 % Immature Granulocyte % (Auto) 0.4 % Immature Granulocyte # (Auto) 0.08 K/uL Sodium Level 139 mmol/L Potassium Level 3.7 mmol/L Chloride Level 104 mmol/L Carbon Dioxide Level 23 mmol/L Anion Gap 12.0 mmol/L Blood Urea Nitrogen 13 mg/dl Creatinine 0.99 mg/dl Est Creatinine Clear Calc Drug Dose 102.8 ml/min Estimated GFR () 91.2 Estimated GFR (Non- 78.6 BUN/Creatinine Ratio 12.8 Random Glucose 107 mg/dl Calcium Level 8.4 mg/dl Total Bilirubin 0.7 mg/dl Direct Bilirubin 0.2 mg/dl Aspartate Amino Transf (AST/SGOT) 13 U/L Alanine Aminotransferase (ALT/SGPT) 18 U/L Alkaline Phosphatase 56 U/L Troponin I < 0.015 ng/ml Total Protein 6.8 gm/dl Albumin 3.4 gm/dl Bedside Lactic Acid Venous 1.60 mmol/L Urine Color DK YELLOW Urine Appearance CLOUDY Urine pH 5.0 Urine Specific [place] 1.018 Urine Protein 1+ Urine Glucose (UA) NEG Urine Ketones NEG Urine Occult Blood 2+ Urine Nitrite NEG Urine Bilirubin NEG Urine Urobilinogen NEG Urine Leukocyte Esterase LARGE Urine WBC (Auto) >30 /hpf Urine RBC (Auto) 0-4 /hpf Urine Hyaline Casts (Auto) 1-5 /lpf Urine Epithelial Cells (Auto) >30 /lpf Urine Bacteria (Auto) 1+ Urine Yeast (Auto) Prothrombin Time 11.8 SECONDS Prothromb Time International Ratio 1.1 Test 05/26/16 07:07 White Blood Count 17.41 K/uL Red Blood Count 3.81 M/uL Hemoglobin 10.8 g/dL Hematocrit 31.5 % Mean Corpuscular Volume 82.7 fL Mean Corpuscular Hemoglobin 28.3 pg Mean Corpuscular Hemoglobin Concent 34.3 g/dl Platelet Count 178 K/uL Mean Platelet Volume 9.2 fL Neutrophils (%) (Auto) 87.9 % Lymphocytes (%) (Auto) 5.7 % Monocytes (%) (Auto) 5.9 % Eosinophils (%) (Auto) 0.1 % Basophils (%) (Auto) 0.1 % Neutrophils # (Auto) 15.32 K/uL Lymphocytes # (Auto) 0.99 K/uL Monocytes # (Auto) 1.03 K/uL Eosinophils # (Auto) 0.01 K/uL Basophils # (Auto) 0.01 K/uL RDW Standard Deviation 42.2 fL RDW Coefficient of Variation 13.9 % Immature Granulocyte % (Auto) 0.3 % Immature Granulocyte # (Auto) 0.05 K/uL Sodium Level 141 mmol/L Potassium Level 3.6 mmol/L Chloride Level 109 mmol/L Carbon Dioxide Level 22 mmol/L Anion Gap 10.0 mmol/L Blood Urea Nitrogen 10 mg/dl Creatinine 0.87 mg/dl Est Creatinine Clear Calc Drug Dose 117.0 ml/min Estimated GFR () 106.6 Estimated GFR (Non- 91.9 BUN/Creatinine Ratio 11.3 Random Glucose 131 mg/dl Calcium Level 7.9 mg/dl Assessment and Plan 1) Pyelonephritis - continue IV Vanco and Aztreonam. Infectious disease consultation. 2) Rigors - anticipate this will continue to improve. Can use Toradol and/or opioid analgesic when occurs. 3) Leukocytosis - improving, will continue to monitor. DVT prophylaxis TEDs, SCDs, sub-q Lovenox. Continued [facility] stay due to: fever, multiple IV medications needed Discharge planning: home
--- NOTE | 2016-05-26 10:29 | Medical Consult ---
Consultation Date of Consultation: May 26, 2016. Attending Physician: Joseph Fan DO Reason for Consultation: Pyelonephritis History of Present Illness 26-year-old female with history of pyelonephritis several years ago pneumonia many years ago, otherwise in good health was well until 1 week prior to admission when she noted onset symptoms of possible urinary tract infection. She was treated with Macrodantin without improvement. She then developed severe worsening of pain, almost 10/10 in intensity in the right flank area. This was associated with fever and shaking chills. She was seen in the emergency room and diagnosed with pyelonephritis and sent home on ciprofloxacin , but symptoms worsened and she was subsequently admitted to the hospital. She has been started on aztreonam and vancomycin without much change overnight. Cultures from the urine from her emergency room visit are growing E coli. No sensitivities available as of yet. 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 Sulfa Antibiotics (Unverified Allergy, Severe, CHILDHOOD ALLERGY, SEVERE, WAS HOSPITALIZED., 05/25/16) CHILDHOOD ALLERGY, SEVERE, WAS HOSPITALIZED. Current Inpatient Medications Current Inpatient Medications Medications (Trade) Dose Ordered Sig/Arnoldo Route Start Time Stop Time Status Last Admin Dose Admin Potassium Chloride/Sodium Chloride (05/26 Nss + 20meq KCl 1000ml) 1,000 ml @ 125 mls/hr Q8H IV 05/25/16 21:00 06/24/16 20:59 05/26/16 04:27 125 MLS/HR Ondansetron HCl (Zofran Inj) 4 mg Q6H PRN IV 05/25/16 19:15 06/24/16 19:14 05/25/16 23:08 4 MG Ketorolac Tromethamine (Toradol Inj) 30 mg Q6H PRN IV. 05/25/16 19:15 05/26/16 04:27 30 MG Morphine Sulfate (MoRPHine SULFATE INJ) 3 mg Q3H PRN IV 05/25/16 19:15 06/08/16 19:14 05/25/16 21:58 3 MG Acetaminophen (Tylenol Tab) 650 mg Q4H PRN PO 05/25/16 19:15 06/24/16 19:14 05/26/16 08:57 650 MG Enoxaparin Sodium (Lovenox Inj) 40 mg Q24H SQ 05/25/16 21:00 06/24/16 20:59 Vancomycin HCl 1 ea 1 ea UD PRN N/A 05/25/16 20:45 06/24/16 20:44 Vancomycin HCl 1300 mg/Sodium Chloride 276 ml @ 125 mls/hr Q9H IV 05/26/16 02:00 06/05/16 01:59 05/26/16 02:00 125 MLS/HR Aztreonam/Dextrose (Azactam IV/D5 100ml) 110 ml @ 110 mls/hr Q8H IV 05/26/16 00:00 06/05/16 00:00 05/26/16 08:00 110 MLS/HR Review of Systems Constitutional: + chills, + fever, + weakness Eyes: No problem reported ENT: No problem reported Respiratory: No problem reported Cardiovascular: No problem reported Abdomen: + pain Musculoskeletal: No problem reported Genitourinary - Female: + dysuria, + urinary frequency Neurologic: + numbness/tingling Psychiatric: No problem reported Endocrine: No problem reported Hematologic / Lymphatic: No problem reported Integumentary: No problem reported Allergic / Immunologic: No problem reported Physical Exam Date Time Temp Pulse Resp B/P Pulse Ox O2 Delivery O2 Flow Rate FiO2 05/26/16 07:02 36.8 90 16 107/67 99 Room Air 05/26/16 05:16 37.7 05/26/16 04:30 39.1 05/26/16 03:47 38.2 05/26/16 01:15 37.8 05/26/16 00:00 Room Air 05/26/16 00:00 38.2 05/25/16 23:15 37.0 120 20 124/75 100 Room Air 05/25/16 22:30 36.8 98 18 122/78 Room Air 05/25/16 20:25 36.8 98 18 122/78 97 Room Air 05/25/16 20:06 105 18 128/77 97 05/25/16 18:22 132 05/25/16 18:17 135 22 133/76 97 Room Air 05/25/16 16:08 100 Room Air 05/25/16 16:05 38.2 153 18 117/54 99 Room Air General Appearance: WD/WN, no apparent distress Head: normocephalic, atraumatic Eyes: normal inspection, EOMI, sclerae normal ENT: normal ENT inspection, hearing grossly normal, pharynx normal Neck: supple, no adenopathy, thyroid normal, trachea midline Respiratory/Chest: chest non-tender, lungs clear, normal breath sounds, no respiratory distress Cardiovascular: regular rate, rhythm, no gallop, no murmur Abdomen/GI: normal bowel sounds, soft, no organomegaly, + tenderness (Right flank) Back: normal inspection, + right CVA tenderness Extremities/Musculoskelatal: no calf tenderness, normal range of motion, non- tender Neurologic/Psych: alert, oriented x 3 Skin: normal color, warm/dry, no rash Lymphatic: no adenopathy Laboratory Results Date/Time Source Procedure Growth Status 05/25/16 17:30 Blood Blood Culture Pending Received 05/25/16 17:10 Blood Blood Culture Pending Received Last 24 Hours Test 05/25/16 17:10 05/25/16 17:19 05/25/16 18:15 05/25/16 20:10 White Blood Count 21.63 K/uL Red Blood Count 4.39 M/uL Hemoglobin 12.4 g/dL Hematocrit 36.3 % Mean Corpuscular Volume 82.7 fL Mean Corpuscular Hemoglobin 28.2 pg Mean Corpuscular Hemoglobin Concent 34.2 g/dl Platelet Count 208 K/uL Mean Platelet Volume 9.2 fL Neutrophils (%) (Auto) 92.1 % Lymphocytes (%) (Auto) 2.5 % Monocytes (%) (Auto) 4.9 % Eosinophils (%) (Auto) 0.1 % Basophils (%) (Auto) 0.0 % Neutrophils # (Auto) 19.91 K/uL Lymphocytes # (Auto) 0.55 K/uL Monocytes # (Auto) 1.06 K/uL Eosinophils # (Auto) 0.02 K/uL Basophils # (Auto) 0.01 K/uL RDW Standard Deviation 41.4 fL RDW Coefficient of Variation 13.6 % Immature Granulocyte % (Auto) 0.4 % Immature Granulocyte # (Auto) 0.08 K/uL Sodium Level 139 mmol/L Potassium Level 3.7 mmol/L Chloride Level 104 mmol/L Carbon Dioxide Level 23 mmol/L Anion Gap 12.0 mmol/L Blood Urea Nitrogen 13 mg/dl Creatinine 0.99 mg/dl Est Creatinine Clear Calc Drug Dose 102.8 ml/min Estimated GFR () 91.2 Estimated GFR (Non- 78.6 BUN/Creatinine Ratio 12.8 Random Glucose 107 mg/dl Calcium Level 8.4 mg/dl Total Bilirubin 0.7 mg/dl Direct Bilirubin 0.2 mg/dl Aspartate Amino Transf (AST/SGOT) 13 U/L Alanine Aminotransferase (ALT/SGPT) 18 U/L Alkaline Phosphatase 56 U/L Troponin I < 0.015 ng/ml Total Protein 6.8 gm/dl Albumin 3.4 gm/dl Bedside Lactic Acid Venous 1.60 mmol/L Urine Color DK YELLOW Urine Appearance CLOUDY Urine pH 5.0 Urine Specific [place] 1.018 Urine Protein 1+ Urine Glucose (UA) NEG Urine Ketones NEG Urine Occult Blood 2+ Urine Nitrite NEG Urine Bilirubin NEG Urine Urobilinogen NEG Urine Leukocyte Esterase LARGE Urine WBC (Auto) >30 /hpf Urine RBC (Auto) 0-4 /hpf Urine Hyaline Casts (Auto) 1-5 /lpf Urine Epithelial Cells (Auto) >30 /lpf Urine Bacteria (Auto) 1+ Urine Yeast (Auto) Prothrombin Time 11.8 SECONDS Prothromb Time International Ratio 1.1 Test 05/26/16 07:07 White Blood Count 17.41 K/uL Red Blood Count 3.81 M/uL Hemoglobin 10.8 g/dL Hematocrit 31.5 % Mean Corpuscular Volume 82.7 fL Mean Corpuscular Hemoglobin 28.3 pg Mean Corpuscular Hemoglobin Concent 34.3 g/dl Platelet Count 178 K/uL Mean Platelet Volume 9.2 fL Neutrophils (%) (Auto) 87.9 % Lymphocytes (%) (Auto) 5.7 % Monocytes (%) (Auto) 5.9 % Eosinophils (%) (Auto) 0.1 % Basophils (%) (Auto) 0.1 % Neutrophils # (Auto) 15.32 K/uL Lymphocytes # (Auto) 0.99 K/uL Monocytes # (Auto) 1.03 K/uL Eosinophils # (Auto) 0.01 K/uL Basophils # (Auto) 0.01 K/uL RDW Standard Deviation 42.2 fL RDW Coefficient of Variation 13.9 % Immature Granulocyte % (Auto) 0.3 % Immature Granulocyte # (Auto) 0.05 K/uL Sodium Level 141 mmol/L Potassium Level 3.6 mmol/L Chloride Level 109 mmol/L Carbon Dioxide Level 22 mmol/L Anion Gap 10.0 mmol/L Blood Urea Nitrogen 10 mg/dl Creatinine 0.87 mg/dl Est Creatinine Clear Calc Drug Dose 117.0 ml/min Estimated GFR () 106.6 Estimated GFR (Non- 91.9 BUN/Creatinine Ratio 11.3 Random Glucose 131 mg/dl Calcium Level 7.9 mg/dl Assessment & Plan Early sepsis with what appears to be acute pyelonephritis, likely E coli. Pending further sensitivity data, aztreonam appropriate, and likely can discontinue vancomycin. Recommend CT scan of the abdomen to further evaluate kidney problems are no development abscess, etc. Patient may remain febrile for many days despite appropriate antibiotic therapy and continued fever at this point is expected. May need to consider outpatient IV therapy, but will await final cultures and clinical response. Will follow.
[2016-05-26] MEDS ORDERED: VANCOMYCIN TROUGH SCH (10:30)
[2016-05-26] MEDS ORDERED: NURSING VERBAL MED ORDER ONE ×2 (11:45→18:30)
[2016-05-26] MEDS: ONDANSETRON INJ 2 MG/ML 2 ML VIAL IV PRN ×2 (12:18→17:42)
[2016-05-26] MEDS ORDERED: MEPERIDINE HCL 25 MG/ML CARP IV PRN (18:30)
[2016-05-26] MEDS: ENOXAPARIN 40 MG/0.4 ML SYR SQ SCH (21:00)
[2016-05-26] MEDS ORDERED: OPTIRAY 320 IV PRN (22:00)
--- NOTE | 2016-05-26 22:07 | DIAGNOSTIC IMAGING REPORT ---
ABDOMEN AND PELVIS CT WITH IV AND ORAL CONTRAST CT DOSE: 495.83 mGy.cm HISTORY: Fever pyelonephritis with persistent fever. TECHNIQUE: Multiaxial CT images of the abdomen and pelvis were performed following the use of intravenous and oral contrast. COMPARISON STUDY: None. FINDINGS: Lung bases are clear. Patchy enhancement characteristics of the mid to upper aspect right kidney consistent with polynephritis. No definite evidence for right renal hydronephrosis. There is 2 mm nonobstructing lower pole calcification left kidney. Possible 2 mm proximal left ureteral calculus. Trace fullness left renal collecting system with a trace of altered process of the right renal perinephric fat. 3 mm calculus proximal right ureter mild to moderate fullness right renal collecting system. Bowel pattern is considered nonobstructive. Moderate amount of partially septated and/or and/or potentially partially hemorrhagic fluid within the pelvic cul-de-sac. Bladder is midline. There are no contained calcifications. IMPRESSION: 1. 3 mm partially obstructing calculus proximal right ureter. 2. Mild right renal hydronephrosis. 3. This is superimposed upon findings of pyelonephritis of the mid to upper aspect right kidney. 4. 2 mm minimally obstructing calculus proximal left ureter. 5. Mild left hydronephrosis. 6. 3 mm nonobstructing calculus lower pole left kidney. 4. Small/moderate amount of slightly complex fluid within the pelvic cul-de-sac Electronically signed by: Jun Cristina M.D. 05/26/2016 10:05 PM
[2016-05-27] MEDS: KETOROLAC TROMETHAMINE 30 MG/ML VIAL IV. PRN ×3 (00:01→19:26)
[2016-05-27] MEDS ORDERED: ZOLPIDEM TARTRATE 5 MG TAB PO PRN (04:30)
[2016-05-27] MEDS ORDERED: ZOLPIDEM TARTRATE 5 MG TAB ONE (04:49)
[2016-05-27] MEDS: NSS + 20MEQ KCL 1000ML 1,000 ML IV SCH ×2 (05:59→16:05)
[2016-05-27 06:05] VITALS: TEMP 36.7
[2016-05-27] MEDS: ONDANSETRON INJ 2 MG/ML 2 ML VIAL IV PRN ×2 (06:11→22:00)
[2016-05-27 07:07] LABS: BASO % 0.1 %; BASO ABS # 0.01 K/uL (0-0.2); COMPLETE YES; EOS % 1.4 %; HEMATOCRIT 31.1 % (37-47); IG% 0.2 %; MEAN CELL VOLUME 82.3 fL (80-100); MEAN CORPUSCULAR HEMOGLOBIN 28.6 pg (25-34); MEAN CORPUSCULAR HGB CONC 34.7 g/dl (32-36); MEAN PLATELET VOLUME 9.5 fL (7.4-10.4); MONO % 9.9 %; NEUT % 78.4 %; PLATELET COUNT 144 K/uL (130-400); RED BLOOD COUNT 3.78 M/uL (4.2-5.4); WHITE BLOOD COUNT 10.98 K/uL (4.8-10.8)
[2016-05-27 07:44] LABS: BUN/CREATININE RATIO 10.4 (10-20); CREATININE 0.69 mg/dl (0.60-1.20); POTASSIUM 3.6 mmol/L (3.5-5.1)
[2016-05-27 08:00] VITALS: O2SAT 98
[2016-05-27] MEDS: AZTREONAM IV 1,000 MG in DEXTROSE 5% 100ML IV SCH ×4 (08:20→16:20)
[2016-05-27 08:53] VITALS: BP 113/58; PULSE 114; TEMP 37.4; O2SAT 97
--- NOTE | 2016-05-27 10:50 | Family Medicine Progress Note ---
Progress Note Date of Service May 27, 2016. Subjective Pt evaluation today including: conversation w/ patient, physical exam Feels ok, has pain relief for about 6 hours after Toradol. Still had chills this AM. Constitutional: + chills, No fever, No sweats, No weakness, No weight loss Eyes: No worsening of vision Respiratory: No cough, No dyspnea on exertion, No shortness of breath, No sputum, No wheezing Cardiovascular: No chest pain Abdomen: No diarrhea, No nausea, No pain, No vomiting Musculoskeletal: No joint pain Female : + dysuria Endo: No fatigue Skin: No rash All Other Systems: Reviewed and Negative Medications Current Inpatient Medications Medications (Trade) Dose Ordered Sig/Arnoldo Route Start Time Stop Time Status Last Admin Dose Admin Ondansetron HCl (Zofran Inj) 4 mg Q6H PRN IV 05/25/16 19:15 06/24/16 19:14 05/27/16 06:11 4 MG Ketorolac Tromethamine (Toradol Inj) 30 mg Q6H PRN IV. 05/25/16 19:15 05/27/16 06:06 30 MG Morphine Sulfate (MoRPHine SULFATE INJ) 3 mg Q3H PRN IV 05/25/16 19:15 06/08/16 19:14 05/25/16 21:58 3 MG Acetaminophen (Tylenol Tab) 650 mg Q4H PRN PO 05/25/16 19:15 06/24/16 19:14 05/26/16 18:04 650 MG Enoxaparin Sodium 40 mg 40 mg Q24H SQ 05/25/16 21:00 06/24/16 20:59 Aztreonam/Dextrose (Azactam IV/D5 100ml) 110 ml @ 110 mls/hr Q8H IV 05/26/16 00:00 06/05/16 00:00 05/27/16 08:20 110 MLS/HR Meperidine HCl (Demerol Inj) 25 mg Q3HWA PRN IV 05/26/16 18:30 06/09/16 18:29 Ioversol (Optiray 320) 125 ml UD PRN IV 05/26/16 22:00 05/30/16 21:59 Zolpidem Tartrate 5 mg 5 mg HS PRN PO 05/27/16 04:30 06/26/16 04:29 Potassium Chloride/Sodium Chloride (Nss + 20meq KCl 1000ml) 1,000 ml @ 100 mls/hr Q10H IV 05/27/16 05:30 05/28/16 01:29 05/27/16 05:59 100 MLS/HR Objective Vital Signs Date Time Temp Pulse Resp B/P Pulse Ox O2 Delivery O2 Flow Rate FiO2 05/27/16 08:53 37.4 114 20 113/58 97 Room Air 05/27/16 08:00 98 Room Air 05/27/16 06:05 36.7 05/26/16 23:50 36.8 91 16 114/71 98 Room Air 05/26/16 23:50 Room Air 05/26/16 19:38 37.9 05/26/16 18:01 39.3 05/26/16 16:51 37.2 05/26/16 16:00 Room Air 05/26/16 15:37 36.3 86 16 114/76 100 Room Air Physical Exam General Appearance: WD/WN, no apparent distress Eyes: normal inspection, PERRL ENT: hearing grossly normal Neck: supple, no JVD Respiratory/Chest: lungs clear, normal breath sounds, no respiratory distress Cardiovascular: regular rate, rhythm, no murmur Abdomen: normal bowel sounds, non tender, soft, + pertinent finding (R CVA TENDERNESS) Extremities: non-tender, normal inspection Neurologic/Psychiatric: alert, normal mood/affect, oriented x 3 Skin: no rash Laboratory Results Last 24 Hours Test 05/27/16 06:44 White Blood Count 10.98 K/uL Red Blood Count 3.78 M/uL Hemoglobin 10.8 g/dL Hematocrit 31.1 % Mean Corpuscular Volume 82.3 fL Mean Corpuscular Hemoglobin 28.6 pg Mean Corpuscular Hemoglobin Concent 34.7 g/dl Platelet Count 144 K/uL Mean Platelet Volume 9.5 fL Neutrophils (%) (Auto) 78.4 % Lymphocytes (%) (Auto) 10.0 % Monocytes (%) (Auto) 9.9 % Eosinophils (%) (Auto) 1.4 % Basophils (%) (Auto) 0.1 % Neutrophils # (Auto) 8.61 K/uL Lymphocytes # (Auto) 1.10 K/uL Monocytes # (Auto) 1.09 K/uL Eosinophils # (Auto) 0.15 K/uL Basophils # (Auto) 0.01 K/uL RDW Standard Deviation 42.6 fL RDW Coefficient of Variation 14.0 % Immature Granulocyte % (Auto) 0.2 % Immature Granulocyte # (Auto) 0.02 K/uL Sodium Level 139 mmol/L Potassium Level 3.6 mmol/L Chloride Level 108 mmol/L Carbon Dioxide Level 22 mmol/L Anion Gap 9.0 mmol/L Blood Urea Nitrogen 7 mg/dl Creatinine 0.69 mg/dl Est Creatinine Clear Calc Drug Dose 147.5 ml/min Estimated GFR () 139.2 Estimated GFR (Non- 120.1 BUN/Creatinine Ratio 10.4 Random Glucose 89 mg/dl Calcium Level 8.0 mg/dl Assessment and Plan 26 yo F with first episode of R sided pyelonephritis, had failed Nitrofurantioin and Cipro, now on day 3 of Aztreonam (Vanc discontinued) R sided pyelonephritis: Appreciate ID recommendations Pain/Rigors: Continue Toradol/ Opioids Leukocytosis: Continue to monitor. DVT Prophylaxis: SCDs, SQ Lovenox Resident Physician Supervision Note: I interviewed and examined the patient. Discussed with Dr. Dunlap and agree with findings and plan as documented in the note. Any exceptions or clarifications are listed here: No fevers today; last fever in the evening 05/26/16. Tolerated light breakfast without emesis. CT scan completed last evening demonstrates 3mm partially obstruction stone. I discussed with and will consult urology regarding partially obstructing stone in the setting of pyelonephritis. Will check KUB today to see if progression ( or regression) of stone compared to CT last evening. Also discussed case with ID team. PLAN 1) Consult urology; if they recommend intervention, will continue IB Abx and make NPO. If no intervention warranted, consider trial of PO Abx. 2) Appreciate ID consult. Documented By: John Aviles Resident Tracking Resident Involvement: Resident Care Provided Care Provided: Adult Hospital Medicine
--- NOTE | 2016-05-27 11:43 | Infectious Disease Progress Nt ---
Progress Note Date of Service May 27, 2016. Subjective Pt evaluation today including: conversation w/ patient, physical exam, chart review, lab review, review of studies, conversation w/ alliance consultant, review of inpatient medication list Patient with fever and chills last night, better after Toradol, afebrile this morning but still with episode of chills. Intermittent right-sided pain. CT scan obtained, read by me, showing evidence of right pyelonephritis as well as partial obstruction of the right ureter from stone. Has bilateral stone disease. Blood cultures remain negative to date. Urine from emergency room growing fully sensitive E coli. Tolerating aztreonam thus far. All Other Systems: Reviewed and Negative Medications Current Inpatient Medications Medications (Trade) Dose Ordered Sig/Arnoldo Route Start Time Stop Time Status Last Admin Dose Admin Ondansetron HCl (Zofran Inj) 4 mg Q6H PRN IV 05/25/16 19:15 06/24/16 19:14 05/27/16 06:11 4 MG Ketorolac Tromethamine (Toradol Inj) 30 mg Q6H PRN IV. 05/25/16 19:15 05/27/16 06:06 30 MG Morphine Sulfate (MoRPHine SULFATE INJ) 3 mg Q3H PRN IV 05/25/16 19:15 06/08/16 19:14 05/25/16 21:58 3 MG Acetaminophen (Tylenol Tab) 650 mg Q4H PRN PO 05/25/16 19:15 06/24/16 19:14 05/26/16 18:04 650 MG Enoxaparin Sodium 40 mg 40 mg Q24H SQ 05/25/16 21:00 06/24/16 20:59 Aztreonam/Dextrose (Azactam IV/D5 100ml) 110 ml @ 110 mls/hr Q8H IV 05/26/16 00:00 06/05/16 00:00 05/27/16 08:20 110 MLS/HR Meperidine HCl (Demerol Inj) 25 mg Q3HWA PRN IV 05/26/16 18:30 06/09/16 18:29 Ioversol (Optiray 320) 125 ml UD PRN IV 05/26/16 22:00 05/30/16 21:59 Zolpidem Tartrate 5 mg 5 mg HS PRN PO 05/27/16 04:30 06/26/16 04:29 Potassium Chloride/Sodium Chloride (Nss + 20meq KCl 1000ml) 1,000 ml @ 100 mls/hr Q10H IV 05/27/16 05:30 05/28/16 01:29 05/27/16 05:59 100 MLS/HR Objective Vital Signs Date Time Temp Pulse Resp B/P Pulse Ox O2 Delivery O2 Flow Rate FiO2 05/27/16 08:53 37.4 114 20 113/58 97 Room Air 05/27/16 08:00 98 Room Air 05/27/16 06:05 36.7 05/26/16 23:50 36.8 91 16 114/71 98 Room Air 05/26/16 23:50 Room Air 05/26/16 19:38 37.9 05/26/16 18:01 39.3 05/26/16 16:51 37.2 05/26/16 16:00 Room Air 05/26/16 15:37 36.3 86 16 114/76 100 Room Air Physical Exam General Appearance: WD/WN, + mild distress Eyes: normal inspection, sclerae normal ENT: normal ENT inspection, pharynx normal Neck: supple, no adenopathy, trachea midline Respiratory/Chest: chest non-tender, lungs clear, normal breath sounds, no respiratory distress Cardiovascular: regular rate, rhythm, no gallop, no murmur Abdomen: normal bowel sounds, soft, no organomegaly, + tenderness ( Right side and right flank) Extremities: non-tender, no calf tenderness Neurologic/Psychiatric: alert, oriented x 3 Skin: normal color, warm/dry, no rash Lymphatic: no adenopathy Laboratory Results RUN DATE: 05/27/16 [facility] LAB PAGE 1 RUN TIME: 815 Specimen Inquiry PATIENT: JESÚSFRANKKYA WADENA CLINICT #: [id number] LOC: [facility] U # : [id number] AGE/SX: 26/F ROOM: REG : 05/25/[address]: Migue Brennan D.O. : 1990 BED: DIS : STATUS: DEP ER TLOC: SPEC #: [id number] JOYCE: 05/25/16 STATUS: COMP REQ #: [id number] RECD: 05/25/16-[address]: Giovana Posadas PA SOURCE: ALFREDO, CC ENTR: 05/25/[address] [facility] [address]: Migue Brennan D.O. SPDESC: No Doctor, Assigned ORDERED: CULTURE DONOVAN COMMENTS: Has Specimen Been Obtained/Collected? Y Procedure Result Verified Site URINE CULTURE Final 05/27/16 Organism 1 ESCHERICHIA COLI COLONY COUNT >100,000 CFU/ml SENS SENSITIVITY TO FOLLOW 1. ESCHERICHIA COLI Target Route Dose RX AB Cost M.I.C. IQ ------ ----- ------ -- ------ -------- - ------ TRIMET/SULFA S <=2/38 AMPICILLIN S <=8 AMPICILLIN/SUL S <=8/4 CEFAZOLIN S <=8 CEFOTAXIME S <=2 CEFTRIAXONE S <=1 CEFEPIME S <=4 CEFUROXIME S <=4 IMIPENEM S <=1 GENTAMICIN S <=4 TOBRAMYCIN S <=4 AMIKACIN S <=16 CIPROFLOXACIN S <=1 LEVOFLOXACIN S <=2 ERTAPENEM S <=1 NITROFURANTOIN S <=32 PIP/TAZO S <=16 S = SENSITIVE I = INTERMEDIATE R = RESISTANT vanc- Last 24 Hours Test 05/27/16 06:44 White Blood Count 10.98 K/uL Red Blood Count 3.78 M/uL Hemoglobin 10.8 g/dL Hematocrit 31.1 % Mean Corpuscular Volume 82.3 fL Mean Corpuscular Hemoglobin 28.6 pg Mean Corpuscular Hemoglobin Concent 34.7 g/dl Platelet Count 144 K/uL Mean Platelet Volume 9.5 fL Neutrophils (%) (Auto) 78.4 % Lymphocytes (%) (Auto) 10.0 % Monocytes (%) (Auto) 9.9 % Eosinophils (%) (Auto) 1.4 % Basophils (%) (Auto) 0.1 % Neutrophils # (Auto) 8.61 K/uL Lymphocytes # (Auto) 1.10 K/uL Monocytes # (Auto) 1.09 K/uL Eosinophils # (Auto) 0.15 K/uL Basophils # (Auto) 0.01 K/uL RDW Standard Deviation 42.6 fL RDW Coefficient of Variation 14.0 % Immature Granulocyte % (Auto) 0.2 % Immature Granulocyte # (Auto) 0.02 K/uL Sodium Level 139 mmol/L Potassium Level 3.6 mmol/L Chloride Level 108 mmol/L Carbon Dioxide Level 22 mmol/L Anion Gap 9.0 mmol/L Blood Urea Nitrogen 7 mg/dl Creatinine 0.69 mg/dl Est Creatinine Clear Calc Drug Dose 147.5 ml/min Estimated GFR () 139.2 Estimated GFR (Non- 120.1 BUN/Creatinine Ratio 10.4 Random Glucose 89 mg/dl Calcium Level 8.0 mg/dl Patient Name: KYA UNDERWOOD Unit Number: [id number] Dictated: 05/26/162199 Transcribed: 05/26/162199 MS Printed Date/Time: [~ rep prt dt]/[~ rep prt tm] [~ rep ct labl] - [~ rep ct ivnm] [facility] [place] [address] Dictated: 05/26/162199 Transcribed: 05/26/162199 MS Printed Date/Time: [~ rep prt dt]/[~ rep prt tm] [~ rep ct labl] - [~ rep ct ivnm] ABDOMEN AND PELVIS CT WITH IV AND ORAL CONTRAST CT DOSE: 495.83 mGy.cm HISTORY: Fever pyelonephritis with persistent fever. TECHNIQUE: Multiaxial CT images of the abdomen and pelvis were performed following the use of intravenous and oral contrast. COMPARISON STUDY: None. FINDINGS: Lung bases are clear. Patchy enhancement characteristics of the mid to upper aspect right kidney consistent with polynephritis. No definite evidence for right renal hydronephrosis. There is 2 mm nonobstructing lower pole calcification left kidney. Possible 2 mm proximal left ureteral calculus. Trace fullness left renal collecting system with a trace of altered process of the right renal perinephric fat. 3 mm calculus proximal right ureter mild to moderate fullness right renal collecting system. Bowel pattern is considered nonobstructive. Moderate amount of partially septated and/or and/or potentially partially hemorrhagic fluid within the pelvic cul-de-sac. Bladder is midline. There are no contained calcifications. IMPRESSION: 1. 3 mm partially obstructing calculus proximal right ureter. 2. Mild right renal hydronephrosis. 3. This is superimposed upon findings of pyelonephritis of the mid to upper aspect right kidney. 4. 2 mm minimally obstructing calculus proximal left ureter. 5. Mild left hydronephrosis. 6. 3 mm nonobstructing calculus lower pole left kidney. 4. Small/moderate amount of slightly complex fluid within the pelvic cul-de-sac Electronically signed by: Jun Cristina M.D. 05/26/2016 10:05 PM The status of this report is Signed. Draft = Not yet reviewed or approved by Radiologist. Signed = Reviewed and approved by Radiologist. <AttendingPhy>Joseph Fan, DO</AttendingPhy> <FamilyPhy>No Doctor, Assigned </FamilyPhy> <PrimaryPhy>No Doctor, Assigned</PrimaryPhy> <UnitNumber>[id number] </UnitNumber> <VisitNumber>[id number]</VisitNumber> <PatientName>JESÚSFRANKKYA </PatientName> <DateOfBirth>1990</DateOfBirth> <Location>[facility]</Location > <ServiceDate>05/25/16</ServiceDate> <MNE>ESINDI</MNE> <OrderingPhy>Joseph Fan DO</OrderingPhy> <OrderingPhyMNE>f rep ord dr linda</OrderingPhyMNE> < DictatingPhyMNE>f rep dict dr linda</DictatingPhyMNE> <CCListMNE>f rep ct alexei</ CCListMNE> <AdmittingPhyMNE>f pt admit dr linda</AdmittingPhyMNE> <AttendingPhyMNE >f pt attend dr linda</AttendingPhyMNE> <ConsultingPhyMNE>f pt consult dr linda</ConsultingPhyMNE> <FamilyPhyMNE>f pt fam dr linda</FamilyPhyMNE> <OtherPhyMNE>f pt other dr linda</OtherPhyMNE> < PrimaryPhyMNE>f pt prim care dr linda</PrimaryPhyMNE> <ReferringPhyMNE>f pt referring dr linda</ReferringPhyMNE> Assessment and Plan Early sepsis from E coli pyelonephritis with evidence of partial obstructive uropathy. Patient may take several days to defervesce, and partial obstruction may delay response. For now, patient should continue on IV aztreonam, but likely able to transition back to oral quinolone in the near future if she improves. Recommend urologic evaluation for stone disease.
--- NOTE | 2016-05-27 13:43 | DIAGNOSTIC IMAGING REPORT ---
KUB CLINICAL HISTORY: Kidney stone. COMPARISON STUDY: CT of the abdomen and pelvis October. FINDINGS: The bowel gas pattern is normal. There is contrast within the colon from recent contrast-enhanced CT. This contrast makes evaluation for the previously described renal and ureteral calculi difficult. A suspected 5 mm calculus within lower pole of the left kidney is noted. The ureteral calculi shown on prior CT are not visualized on this exam but could be obscured by oral contrast. IMPRESSION: 1. Contrast within the colon from recent CT which makes evaluation for ureteral calculi difficult. 2. 5 mm left renal calculus. The ureteral calculi shown on prior CT are not visualized on this exam but could be obscured by oral contrast. Electronically signed by: Esequiel Gonzalez M.D. 05/27/2016 1:41 PM
--- NOTE | 2016-05-27 13:46 | Urology Consultation ---
History General Date of Service: May 27, 2016. 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 UC&S from ED last week growing e coli. The pt was placed on Macrobid for a UTI 1 week ago, but developed worsening symptoms and came to [facility] ED 2 days ago for right flank pain. She was placed on Cipro at the time, but symptoms worsened and she returned for admission. She is now currently on IV Aztreonam. Pt noted to have a fever of 39.3C yesterday. She has remained afebrile today. CT scan last evening shows bilateral proximal ureteral stones. A 3mm proximal right ureteral stone and a 2mm left proximal stone. consulted for this issue. The pt reports a previous hx of passing a stone as a teenager. She has not seen a urologist for this issue in the past. She reports several days of intermittent right flank pain and nausea prior to admission. Imaging Imaging: CT Laboratory Last 24 Hours Test 05/27/16 06:44 White Blood Count 10.98 K/uL Red Blood Count 3.78 M/uL Hemoglobin 10.8 g/dL Hematocrit 31.1 % Mean Corpuscular Volume 82.3 fL Mean Corpuscular Hemoglobin 28.6 pg Mean Corpuscular Hemoglobin Concent 34.7 g/dl Platelet Count 144 K/uL Mean Platelet Volume 9.5 fL Neutrophils (%) (Auto) 78.4 % Lymphocytes (%) (Auto) 10.0 % Monocytes (%) (Auto) 9.9 % Eosinophils (%) (Auto) 1.4 % Basophils (%) (Auto) 0.1 % Neutrophils # (Auto) 8.61 K/uL Lymphocytes # (Auto) 1.10 K/uL Monocytes # (Auto) 1.09 K/uL Eosinophils # (Auto) 0.15 K/uL Basophils # (Auto) 0.01 K/uL RDW Standard Deviation 42.6 fL RDW Coefficient of Variation 14.0 % Immature Granulocyte % (Auto) 0.2 % Immature Granulocyte # (Auto) 0.02 K/uL Sodium Level 139 mmol/L Potassium Level 3.6 mmol/L Chloride Level 108 mmol/L Carbon Dioxide Level 22 mmol/L Anion Gap 9.0 mmol/L Blood Urea Nitrogen 7 mg/dl Creatinine 0.69 mg/dl Est Creatinine Clear Calc Drug Dose 147.5 ml/min Estimated GFR () 139.2 Estimated GFR (Non- 120.1 BUN/Creatinine Ratio 10.4 Random Glucose 89 mg/dl Calcium Level 8.0 mg/dl Problem List Medical Problems: (1) ADD (attention deficit disorder) Status: Chronic (2) Pyelonephritis Status: Acute (3) Pyelonephritis Status: Acute (4) Sepsis Status: Acute Past History other (ADD; benign tumor of the mesentery) Past Surgical History: exploratory laparotomy, tonsillectomy Family History non-contributory Social History Hx Tobacco Use In Past Year?: No Smoking: non-smoker Alcohol: never Drug use: none Marital status: single, in relationship 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 Sulfa Antibiotics (Unverified Allergy, Severe, CHILDHOOD ALLERGY, SEVERE, WAS HOSPITALIZED., 05/25/16) CHILDHOOD ALLERGY, SEVERE, WAS HOSPITALIZED. Medications Home Medications: Home Meds and Scripts Medications Dose Route/Sig Max Daily Dose Days Date Category Dose Instructions Adderall 20MG (Amphetamine-Dextroamphetamine 20MG) 1 Tab Tab 20 Mg PO TID PRN 05/25/16 Reported Zofran Odt (Ondansetron HCl) 4 Mg Tab 4 Mg SL Q6H PRN 05/25/16 Rx Cipro (Ciprofloxacin Hcl) 500 Mg Tab 500 Mg PO BID 05/25/16 Rx Roxicodone Ir (Oxycodone HCl) 5 Mg Tab 1-2 Tab PO Q4H PRN 05/25/16 Rx For Initial Treatment Inpatient Medications: Current Inpatient Medications Medications (Trade) Dose Ordered Sig/Arnoldo Route Start Time Stop Time Status Last Admin Dose Admin Ondansetron HCl (Zofran Inj) 4 mg Q6H PRN IV 05/25/16 19:15 06/24/16 19:14 05/27/16 06:11 4 MG Ketorolac Tromethamine (Toradol Inj) 30 mg Q6H PRN IV. 05/25/16 19:15 05/27/16 06:06 30 MG Morphine Sulfate (MoRPHine SULFATE INJ) 3 mg Q3H PRN IV 05/25/16 19:15 06/08/16 19:14 05/25/16 21:58 3 MG Acetaminophen (Tylenol Tab) 650 mg Q4H PRN PO 05/25/16 19:15 06/24/16 19:14 05/26/16 18:04 650 MG Enoxaparin Sodium 40 mg 40 mg Q24H SQ 05/25/16 21:00 06/24/16 20:59 Aztreonam/Dextrose (Azactam IV/D5 100ml) 110 ml @ 110 mls/hr Q8H IV 05/26/16 00:00 06/05/16 00:00 05/27/16 08:20 110 MLS/HR Meperidine HCl (Demerol Inj) 25 mg Q3HWA PRN IV 05/26/16 18:30 06/09/16 18:29 Ioversol (Optiray 320) 125 ml UD PRN IV 05/26/16 22:00 05/30/16 21:59 Zolpidem Tartrate 5 mg 5 mg HS PRN PO 05/27/16 04:30 06/26/16 04:29 Potassium Chloride/Sodium Chloride (Nss + 20meq KCl 1000ml) 1,000 ml @ 100 mls/hr Q10H IV 05/27/16 05:30 05/28/16 01:29 05/27/16 05:59 100 MLS/HR Review of Systems Review of Systems Constitutional: + chills (intermittent ), + fever (intermittent ) Eyes: No double vision Neurological: No dizzy Endocrine: No excessive thirst Gastrointestinal: + abdominal pain (right flank ), No nausea, No vomiting Cardiovascular: No chest pain Respiratory: No shortness of breath Skin: No rash Musculoskeletal: + back pain (right low back ) Female : No blood in urine, No painful urination Physical Exam Vital Signs: Vital Signs Past 12 Hours Date Time Temp Pulse Resp B/P Pulse Ox O2 Delivery O2 Flow Rate FiO2 05/27/16 08:53 37.4 114 20 113/58 97 Room Air 05/27/16 08:00 98 Room Air 05/27/16 06:05 36.7 Physical Exam: General Appearance: no apparent distress Eyes: bilateral eyes normal inspection ENT: hearing grossly normal Neck: no JVD Respiratory/Chest: no respiratory distress, no accessory muscle use Cardiovascular: no JVD Extremities: normal inspection Neurologic/Psychiatric: alert, normal mood/affect, oriented x 3 Skin: normal color Assessment & Plan Assessment & Plan 26 yo female with UTI, suspected pyelonephritis, and bilateral proximal ureteral stones. Continue IV abx for now. Strain all urine. Will make her NPO and observe for now as she just had lunch. In the event fever returns, she decompensates, or stent persists, will need to go to the OR for ureteral stent placement. Thanks for the consult. Will continue to follow along with primary service at this time. Saw pt this evening and spent 30 minutes discussing case with pt and pts mother by phone . her mother is a nurse. The pt had a Hx of severe pain starting Thursday and had a urine culture that was trammell sensitive ECOLI. The pt has had a sharp drop in her wbc to just below 10 k from over 21 k 2 days ago. She has minimal flank pain on the right and her 24 hour Tmax is 37.4 which is much lower and overall she feels better. A kub to try to visualize the stone was unsuccessful as she has oral contrast obscuring the ureters . I told them the conservative move would be to place a stent and had I seen her last night I would have insisted on this . Since She is clinically improved we discussed option of giving pt mom and colace and repeating the kub in am to see if the stones moved or might be visible for eswl next week without a stent. I told them should she spike above 100.5 would proceed with a stent . I explained there is a risk this could happen. They understand and wish to observe overnight. If she spikes the she will stop drinking immediately. All questions answered and they understand as best they can the issues and options.
--- NOTE | 2016-05-27 15:06 | Medical Student: [facility] ---
Med Student History & Physical Date & Time of Service: May 27, 2016 at 14:44 Chief Complaint: Pyelonephritis Primary Care Physician: No Doctor, Assigned History of Present Illness Source: patient, clinic records, hospital records Pt is a 26 yo female who presented to the ED three days ago with significant low back pain following sxs of a UTI treated with macrobid. Pt notes that a little over week ago she was experiencing urgency, frequency and burning with urination for which she was given Macrobid abx. She notes that she took the full course of abx. She noted that urgency, frequency and burning with urination resolved, but she did continue to note some CVA tenderness. Pt then reported to the ED three days ago with low back pain at the CVA. The ED diagnosed a UTI and provided her with a course of Cipro abx. The pt was discharged home and laid down for a nap. She woke up a few hours later with, nausea shaking chills and numbness in her hands. She promptly returned to the ED and was admitted for a suspected pyelonephritis.. She was started on IV vanco and Aztreonam. She notes that over the last two days she continued to feel nauseated and has vomited. The rigors have also continued. She notes improved CVA pain/tenderness and a resolution of burning with urination. She notes feeling better after Toradol administration q six hours. A CT of the retroperitoneum showed a 3mm renal calculus on the right which is partially obstructing the ureter. The pyelonephritis is also on the right. A smaller, 2 mm renal calculus was also found on the left. Past Medical/Surgical History Medical Problems: (1) ADD (attention deficit disorder) Status: Chronic (2) Benign tumor of mesentery Status: Resolved (3) Pyelonephritis Status: Acute (4) Pyelonephritis Status: Acute (5) Sepsis Status: Acute Surgical Problems: (1) History of exploratory laparotomy Status: Resolved (2) Hx of tonsillectomy Status: Resolved Social History Smoking Status: Never Smoker Smokeless Tobacco Use: Yes Marital Status: single, in relationship Housing status: lives with significant other Occupational Status: [employer] student ([employer]) Allergies Coded Allergies: Penicillins (Unverified Allergy, Severe, CHILDHOOD ALLERGY, SEVERE, WAS HOSPITALIZED., 05/25/16) CHILDHOOD ALLERGY, SEVERE, WAS HOSPITALIZED. Sulfa Antibiotics (Unverified Allergy, Severe, CHILDHOOD ALLERGY, SEVERE, WAS HOSPITALIZED., 05/25/16) CHILDHOOD ALLERGY, SEVERE, WAS HOSPITALIZED. Medications Amphetamine-Dextroamphetamine 20MG (Adderall 20MG), 20 MG PO TID PRN for Focus Ciprofloxacin Hcl (Cipro), 500 MG PO BID Ondasetron Odt (Zofran Odt), 4 MG SL Q6H PRN for Nausea or Vomiting Oxycodone Immediate Rel Tab (Roxicodone Ir), 1-2 TAB PO Q4H PRN for Severe Pain Review of Systems Constitutional: + chills, + fever, + sweats Respiratory: No cough, No shortness of breath, No wheezing Cardiovascular: No chest pain, No palpitations Abdomen: + nausea, + pain (CVA tenderness), + vomiting, No constipation, No diarrhea Genitourinary - Female: No dysuria, No urinary frequency, No urinary urgency Physical Exam Vital Signs (24 Hours) Date Time Temp Pulse Resp B/P Pulse Ox O2 Delivery O2 Flow Rate FiO2 05/27/16 08:53 37.4 114 20 113/58 97 Room Air 05/27/16 08:00 98 Room Air 05/27/16 06:05 36.7 05/26/16 23:50 36.8 91 16 114/71 98 Room Air 05/26/16 23:50 Room Air 05/26/16 19:38 37.9 05/26/16 18:01 39.3 05/26/16 16:51 37.2 05/26/16 16:00 Room Air 05/26/16 15:37 36.3 86 16 114/76 100 Room Air General Appearance: WD/WN, no apparent distress Head: normocephalic, atraumatic Neck: supple, no adenopathy Respiratory/Chest: lungs clear, normal breath sounds Cardiovascular: regular rate, rhythm, no edema, no murmur Genitourinary - Female: + pertinent finding (CVA tenderness) Neurologic/Psych: alert, normal mood/affect Diagnostics Laboratory Results Results Past 24 Hours Test 05/27/16 06:44 Range/Units White Blood Count 10.98 4.8-10.8 K/uL Red Blood Count 3.78 4.2-5.4 M/uL Hemoglobin 10.8 12.0-16.0 g/dL Hematocrit 31.1 37-47 % Mean Corpuscular Volume 82.3 80-100 fL Mean Corpuscular Hemoglobin 28.6 25-34 pg Mean Corpuscular Hemoglobin Concent 34.7 32-36 g/dl Platelet Count 144 130-400 K/uL Mean Platelet Volume 9.5 7.4-10.4 fL Neutrophils (%) (Auto) 78.4 % Lymphocytes (%) (Auto) 10.0 % Monocytes (%) (Auto) 9.9 % Eosinophils (%) (Auto) 1.4 % Basophils (%) (Auto) 0.1 % Neutrophils # (Auto) 8.61 1.4-6.5 K/uL Lymphocytes # (Auto) 1.10 1.2-3.4 K/uL Monocytes # (Auto) 1.09 0.11-0.59 K/uL Eosinophils # (Auto) 0.15 0-0.5 K/uL Basophils # (Auto) 0.01 0-0.2 K/uL RDW Standard Deviation 42.6 36.4-46.3 fL RDW Coefficient of Variation 14.0 11.5-14.5 % Immature Granulocyte % (Auto) 0.2 % Immature Granulocyte # (Auto) 0.02 0.00-0.02 K/uL Sodium Level 139 136-145 mmol/L Potassium Level 3.6 3.5-5.1 mmol/L Chloride Level 108 98-107 mmol/L Carbon Dioxide Level 22 21-32 mmol/L Anion Gap 9.0 3-11 mmol/L Blood Urea Nitrogen 7 7-18 mg/dl Creatinine 0.69 0.60-1.20 mg/dl Est Creatinine Clear Calc Drug Dose 147.5 ml/min Estimated GFR () 139.2 Estimated GFR (Non- 120.1 BUN/Creatinine Ratio 10.4 10-20 Random Glucose 89 70-99 mg/dl Calcium Level 8.0 8.5-10.1 mg/dl Diagnostic Radiology CT showing 3 mm right renal calculus partially obstructing ureter. 2 mm left renal calculus. Impression Assessment and Plan Pt is a 26 yo female who presented 3 days ago with nausea, rigors, fever and CVA tenderness likely secondary to pyelonephritis. She was also found to have multiple renal calculi bilaterally. Pyelonephritis 1. Continue Vanco and Aztreonam abx. 2. Continue Toradol 30mg and Morphine 3 mg for pain management. 3. Continue to monitor leukocytosis - 10.9 today down from 21 on admission. 4. Continue Zofran 4 mg for nausea 5. Consult urology re renal calculi. dispo - remain med/surg Full resuscitation DVT prophylaxis - lovenox MEDICAL STUDENT SUPERVISION I saw the patient with the medical student. Please see separate and complete documentation as provided by the resident physician and my attestation. Level of Care Med/Surg Advanced Directives Existing Advance Directive: No Existing Living Will: No Existing Power of Cupola Melting Supervisor: No Resuscitation Status FULL RESUSCITATION DVT Prophylaxis enoxaparin (Lovenox) SQ
[2016-05-27 15:58] VITALS: BP 122/83; PULSE 90; TEMP 36.8; O2SAT 100
[2016-05-27 17:42] VITALS: TEMP 37.5
[2016-05-27] MEDS ORDERED: MAGNESIUM HYDROXIDE SUSP 30 ML UDC PO ONE (19:15)
[2016-05-27] MEDS ORDERED: DOCUSATE SODIUM 100 MG CAP PO ONE (19:15)
[2016-05-27] MEDS ORDERED: MAGNESIUM HYDROXIDE SUSP 30 ML UDC PO PRN (19:15)
[2016-05-27] MEDS: ENOXAPARIN 40 MG/0.4 ML SYR SQ SCH (20:29)
[2016-05-27] MEDS ORDERED: TAMSULOSIN HCL 0.4 MG CAP PO SCH (22:00)
[2016-05-27 23:51] VITALS: BP 101/69; PULSE 95; TEMP 37; O2SAT 98
[2016-05-28] MEDS: AZTREONAM IV 1,000 MG in DEXTROSE 5% 100ML IV SCH ×3 (07:55)
[2016-05-28] MEDS: KETOROLAC TROMETHAMINE 30 MG/ML VIAL IV. PRN (07:55)
[2016-05-28 08:00] VITALS: BP 127/83; PULSE 84; TEMP 37.1; O2SAT 99
[2016-05-28 08:40] LABS: BASO % 0.2 %; BASO ABS # 0.01 K/uL (0-0.2); COMPLETE YES; EOS % 2.9 %; HEMATOCRIT 31.7 % (37-47); IG% 0.3 %; LYMPH % 22.7 %; LYMPH ABS # 1.31 K/uL (1.2-3.4); MEAN CELL VOLUME 82.6 fL (80-100); MEAN CORPUSCULAR HEMOGLOBIN 27.9 pg (25-34); MEAN CORPUSCULAR HGB CONC 33.8 g/dl (32-36); MEAN PLATELET VOLUME 9.4 fL (7.4-10.4); MONO % 9.9 %; PLATELET COUNT 169 K/uL (130-400); RED BLOOD COUNT 3.84 M/uL (4.2-5.4); WHITE BLOOD COUNT 5.77 K/uL (4.8-10.8)
--- NOTE | 2016-05-28 08:51 | Progress Note ---
Subjective Date of Service: May 28, 2016. (Beatriz Contreras CRNP) Subjective Pt evaluation today including: conversation w/ patient, chart review, lab review Voiding: no voiding problems 26 yo female with UTI and bilateral ureteral stones. Pt reports flank pain has improved this morning. She c/o headache. She has been afebrile for more than 24hrs. White count has normalized. Stones not visible on KUB from last evening d/t contrast obscuring the kidneys. The pt reports she is hungry this AM. (Beatriz Contreras CRNP) Problem List Medical Problems: (1) ADD (attention deficit disorder) Status: Chronic (2) Pyelonephritis Status: Acute (3) Pyelonephritis Status: Acute (4) Sepsis Status: Acute (Beatriz Contreras CRNP) Review of Systems Constitutional: No chills, No fever Respiratory: No shortness of breath Cardiac: No chest pain Abdomen: No nausea, No pain, No vomiting Female : No dysuria, No hematuria Heme: No abnormal bleeding/bruising (Beatriz Contreras CRNP) Objective Vital Signs Date Time Temp Pulse Resp B/P Pulse Ox O2 Delivery O2 Flow Rate FiO2 05/28/16 00:01 Room Air 05/27/16 23:51 37.0 95 18 101/69 98 Room Air 05/27/16 17:42 37.5 05/27/16 16:00 Room Air 05/27/16 15:58 36.8 90 15 122/83 100 Room Air 05/27/16 08:53 37.4 114 20 113/58 97 Room Air (Beatriz Contreras CRNP) Physical Exam General Appearance: no apparent distress Eyes: normal inspection ENT: hearing grossly normal Neck: no JVD Respiratory/Chest: no respiratory distress, no accessory muscle use Cardiovascular: no JVD Extremities: normal inspection Neurologic/Psychiatric: alert, normal mood/affect, oriented x 3 Skin: normal color (Beatriz Contreras CRNP) Laboratory Results Last 24 Hours Test 05/28/16 08:05 White Blood Count 5.77 K/uL Red Blood Count 3.84 M/uL Hemoglobin 10.7 g/dL Hematocrit 31.7 % Mean Corpuscular Volume 82.6 fL Mean Corpuscular Hemoglobin 27.9 pg Mean Corpuscular Hemoglobin Concent 33.8 g/dl Platelet Count 169 K/uL Mean Platelet Volume 9.4 fL Neutrophils (%) (Auto) 64.0 % Lymphocytes (%) (Auto) 22.7 % Monocytes (%) (Auto) 9.9 % Eosinophils (%) (Auto) 2.9 % Basophils (%) (Auto) 0.2 % Neutrophils # (Auto) 3.69 K/uL Lymphocytes # (Auto) 1.31 K/uL Monocytes # (Auto) 0.57 K/uL Eosinophils # (Auto) 0.17 K/uL Basophils # (Auto) 0.01 K/uL RDW Standard Deviation 42.3 fL RDW Coefficient of Variation 13.9 % Immature Granulocyte % (Auto) 0.3 % Immature Granulocyte # (Auto) 0.02 K/uL (Beatriz Contreras CRNP) Assessment and Plan A/P: UTI with bilateral ureteral stones AFVSS. Pt appears to be clinically improving. Will recheck a KUB and renal u/s this morning. May be able to do ESWL as outpatient. Will also order a pre-op chest x-ray and EKG while inpatient. Recommend transitioning her to 14 days of Cipro prior to d/c home. Pt OK for d/c home from perspective. Will plan for outpatient f/u later this week or early next week. Possible ESWL next week. The pt understands she should immediately return to the ER for fever. Will advance to a regular diet this AM. Discharge planning: home (Beatriz Contreras CRNP) appears l stone visible on kub today r stone not visible ultrasound shows bilateral jets indicating drainage. Creatinine and wbc normal pt to be discharged on cipro for trial of passage and if unsuccessful possibly eswl Discussed with partners and given concern for stent pain and now apparent resolving infection this seems the best route (Mario Wesley M.D.)
[2016-05-28 08:52] LABS: PARTIAL THROMBOPLASTIN RATIO 1.2; PROTHROMBIN TIME (PATIENT) 10.9 SECONDS (9.0-12.0)
[2016-05-28 09:10] LABS: CALCIUM 8.5 mg/dl (8.5-10.1); CREATININE 0.8 mg/dl (0.60-1.20); POTASSIUM 3.6 mmol/L (3.5-5.1)
--- NOTE | 2016-05-28 10:14 | DIAGNOSTIC IMAGING REPORT ---
RENAL ULTRASOUND CLINICAL HISTORY: Bilateral ureteral stones. Pyelonephritis. COMPARISON STUDY: CT of the abdomen and pelvis May 26, 2016 and KUB May 27, 2016. TECHNIQUE: Sonography of the kidneys and the urinary bladder was performed. FINDINGS: The right kidney measures 12.5 x 4.6 x 6.5 cm and the left measures 12.9 x 7.5 x 6.6 cm. There is no right hydronephrosis. There is heterogeneity of the echotexture of the mid upper pole of the right kidney. No fluid collection is identified to suggest an abscess. There is mild left hydronephrosis which is likely similar to exam of May 26, 2016 when allowing for differences in technique. A small left renal calculus is noted. Both ureteral jets were identified. No ureteral calculi are identified although these may be occult by sonography. Incidental note was made of a right ovarian cyst. IMPRESSION: 1. Mild left hydronephrosis, similar to CT of May 26, 2016. 2. Left renal calculus. No ureteral calculi identified although these may be occult by sonography. Both ureteral jets identified. 3. Heterogeneous echotexture of the right kidney which may reflect pyelonephritis. No abscess identified. Electronically signed by: Esequiel Gonzalez M.D. 05/28/2016 10:12 AM
--- NOTE | 2016-05-28 10:37 | DIAGNOSTIC IMAGING REPORT ---
CHEST 2 VIEWS ROUTINE CLINICAL HISTORY: Preoperative chest COMPARISON STUDY: No previous studies for comparison. FINDINGS: The cardiac and mediastinal contours are normal. There is no evidence of focal pulmonary consolidation. There is no evidence of failure. No pleural effusions are visualized.[ IMPRESSION: No active disease in the chest. Electronically signed by: Rodrick Bolaños M.D. 05/28/2016 10:36 AM
--- NOTE | 2016-05-28 10:48 | DIAGNOSTIC IMAGING REPORT ---
KUB CLINICAL HISTORY: bilateral ureteral stones COMPARISON STUDY: 05/27/2016 FINDINGS: There is contrast within nondilated colon. This obscures a portion of the left kidney. There is a 5 mm calcification projected over the left kidney suspicious for a calculus. No definite ureteral calculi are visualized however portions the abdomen are obscured by contrast. IMPRESSION: 1. Left-sided nephrolithiasis 2. Contrast within nondilated colon Electronically signed by: Rodrick Bolaños M.D. 05/28/2016 10:46 AM
--- NOTE | 2016-05-28 11:54 | Discharge Instructions ---
Discharge Instructions Admission Reason for Admission: Pyelonephritis Discharge Discharge Diagnosis / Problem: Pyelonephritis, kidney stones Discharge Goals Goal(s): Improve disease control Activity Recommendations Activity Limitations: resume your previous activity . Instructions / Follow-Up Instructions / Follow-Up IF YOU DEVELOP A TEMPERATURE >100.5F YOU MUST RETURN TO THE EMERGENCY DEPARTMENT Follow up with Urology and with a new PCP in the next week or so Continue taking the Cipro you were prescribed in the ED - complete 10 day course of 500mg BID (Which is what you were prescribed then) "Please, follow up with Dr. Dunlap on ThursdayJune 04 at 1:30 pm. This office is located in [address] of the [facility] ( near the hospital). The office phone number is [phone]. Please call to cancel or reschedule" Current Hospital Diet Patient's current hospital diet: Regular Diet Discharge Diet Recommended Diet: Regular Diet Pending Studies Studies pending at discharge: no Medical Emergencies . Who to Call and When: Medical Emergencies: If at any time you feel your situation is an emergency, please call 911 immediately. . Non-Emergent Contact Non-Emergency issues call your: Primary Care Provider, Urologist Call Non-Emergent contact if: temperature is above 100.5 . . "Provider Documentation" section prepared by Radah Dunlap. VTE Core Measure Inpt VTE Proph given/why not?: SCD's
[2016-05-28 12:03] VITALS: BP 127/83; PULSE 84; TEMP 37.1; O2SAT 99
--- NOTE | 2016-05-28 13:28 | Discharge Summary ---
Discharge Summary Admission Date: May 25, 2016 at 19:18 Discharge Date: May 28, 2016 Discharge Disposition: Home Principal Diagnosis: Pyelonephritis, Nephrolithiasis Problems/Secondary Diagnoses: (1) ADD (attention deficit disorder) Status: Chronic Procedures: RENAL ULTRASOUND CLINICAL HISTORY: Bilateral ureteral stones. Pyelonephritis. COMPARISON STUDY: CT of the abdomen and pelvis May 26, 2016 and KUB May 27, 2016. TECHNIQUE: Sonography of the kidneys and the urinary bladder was performed. FINDINGS: The right kidney measures 12.5 x 4.6 x 6.5 cm and the left measures 12.9 x 7.5 x 6.6 cm. There is no right hydronephrosis. There is heterogeneity of the echotexture of the mid upper pole of the right kidney. No fluid collection is identified to suggest an abscess. There is mild left hydronephrosis which is likely similar to exam of May 26, 2016 when allowing for differences in technique. A small left renal calculus is noted. Both ureteral jets were identified. No ureteral calculi are identified although these may be occult by sonography. Incidental note was made of a right ovarian cyst. IMPRESSION: 1. Mild left hydronephrosis, similar to CT of May 26, 2016. 2. Left renal calculus. No ureteral calculi identified although these may be occult by sonography. Both ureteral jets identified. 3. Heterogeneous echotexture of the right kidney which may reflect pyelonephritis. No abscess identified. Electronically signed by: Esequiel Gonzalez M.D. 05/28/2016 10:12 AM PRE-OP CXR NEGATIVE 05/28/16 Consultations: Beatriz Contreras, Urology (Radha Dunlap MD) Medication Reconciliation Continued Medications: Amphetamine-Dextroamphetamine 20MG (Adderall 20MG) 1 Tab Tab 20 MG PO TID PRN for Focus, TAB Ciprofloxacin Hcl (Cipro) 500 Mg Tab 500 MG PO BID, #20 TAB Ondasetron Odt (Zofran Odt) 4 Mg Tab 4 MG SL Q6H PRN for Nausea or Vomiting, #10 TAB Oxycodone Immediate Rel Tab (Roxicodone Ir) 5 Mg Tab 1-2 TAB PO Q4H PRN for Severe Pain, #25 TAB For Initial Treatment Discharge Exam Review of Systems: Constitutional: No chills, No fatigue, No fever, No sweats, No weakness, No weight loss Eyes: No worsening of vision ENT: No hearing loss Respiratory: No cough, No dyspnea at rest, No dyspnea on exertion, No shortness of breath, No sputum, No wheezing Cardiovascular: No chest pain, No orthopnea Abdomen: No constipation, No diarrhea, No nausea, No pain, No vomiting Musculoskeletal: No joint pain, No muscle pain, No swelling Genitourinary - Female: No dysuria, No hematuria, No urinary frequency, No urinary incontinence, No urinary retention, No urinary urgency Neurologic: No paralysis Psychiatric: No depression symptoms Integumentary: No rash Physical Exam: General Appearance: WD/WN, no apparent distress Eyes: normal inspection, PERRL ENT: hearing grossly normal Neck: supple, no adenopathy, no JVD Respiratory/Chest: lungs clear, normal breath sounds, no respiratory distress Cardiovascular: regular rate, rhythm, no murmur, normal peripheral pulses Abdomen / GI: normal bowel sounds, non tender, soft Extremities: no calf tenderness, normal capillary refill, no pedal edema, normal range of motion Neurologic/Psychiatric: alert, normal mood/affect, normal reflexes, oriented x 3 Skin: no rash (Radha Dunlap MD) Hospital Course 26 yo F with first episode of R sided pyelonephritis, found to also have stones causing hydronephrosis. For outpatient ESWL, and to continue 10 days of cipro therapy. R sided pyelonephritis: - Reviewed by ID - Continue cipro for 10 days Nephrolithiasis - ESWL as outpatient - Followed by [facility] Urology DVT Prophylaxis: SCDs, SQ Lovenox This includes examination of the patient, discharge planning, medication reconciliation, and communication with other providers. (Radha Dunlap MD) Resident Physician Supervision Note: I was present with Dr. Dunlap during the history and exam. I discussed the case with the resident and agree with the findings and plan as documented in the note. Any exceptions or clarifications are listed here: Upon my exam today, the patient was out of bed and had no complaints. Reviewed imaging results. Emphasized the need to monitor for fever and return to the hospital for worsening pain or fever greater than 100.5-degrees. She has follow up arranged with PCP and will make appointment with urology. Documented By: John Aviles (John Aviles,D.O.) Discharge Instructions Please refer to the electronic Patient Visit Report (Discharge Instructions) for additional information. (Radha Dunlap MD) Follow-Up With Urology as arranged With PCP - Dr Dunlap - next ThursdayJun 04 at 130 PM (Radha Dunlap MD) Additional Copies To Jessica Wan M.D.
--- NOTE | 2016-05-28 13:32 | Infectious Disease Progress Nt ---
Progress Note Date of Service May 28, 2016. Subjective Pt evaluation today including: conversation w/ patient, physical exam, chart review, lab review, review of studies, conversation w/ systems management consultant, review of inpatient medication list Flank pain improving slowly. Afebrile more than 24 hours. Complaining of some headache. Otherwise without complaints. All Other Systems: Reviewed and Negative Medications Current Inpatient Medications Medications (Trade) Dose Ordered Sig/Arnoldo Route Start Time Stop Time Status Last Admin Dose Admin Ondansetron HCl (Zofran Inj) 4 mg Q6H PRN IV 05/25/16 19:15 06/24/16 19:14 05/27/16 22:00 4 MG Ketorolac Tromethamine (Toradol Inj) 30 mg Q6H PRN IV. 05/25/16 19:15 05/28/16 07:55 30 MG Morphine Sulfate (MoRPHine SULFATE INJ) 3 mg Q3H PRN IV 05/25/16 19:15 06/08/16 19:14 05/25/16 21:58 3 MG Acetaminophen (Tylenol Tab) 650 mg Q4H PRN PO 05/25/16 19:15 06/24/16 19:14 05/26/16 18:04 650 MG Enoxaparin Sodium 40 mg 40 mg Q24H SQ 05/25/16 21:00 06/24/16 20:59 Aztreonam/Dextrose (Azactam IV/D5 100ml) 110 ml @ 110 mls/hr Q8H IV 05/26/16 00:00 06/05/16 00:00 05/28/16 07:55 110 MLS/HR Meperidine HCl (Demerol Inj) 25 mg Q3HWA PRN IV 05/26/16 18:30 06/09/16 18:29 Ioversol (Optiray 320) 125 ml UD PRN IV 05/26/16 22:00 05/30/16 21:59 Zolpidem Tartrate (Ambien Tab) 5 mg HS PRN PO 05/27/16 04:30 06/26/16 04:29 05/27/16 22:00 5 MG Magnesium Hydroxide (Milk Of Magnesia Susp) 30 ml Q6H PRN PO 05/27/16 19:15 06/26/16 19:14 Objective Vital Signs Date Time Temp Pulse Resp B/P Pulse Ox O2 Delivery O2 Flow Rate FiO2 05/28/16 12:03 37.1 84 20 99 Room Air 05/28/16 08:00 37.1 84 20 127/83 99 Room Air 05/28/16 08:00 99 Room Air 05/28/16 00:01 Room Air 05/27/16 23:51 37.0 95 18 101/69 98 Room Air 05/27/16 17:42 37.5 05/27/16 16:00 Room Air 05/27/16 15:58 36.8 90 15 122/83 100 Room Air Physical Exam General Appearance: WD/WN, no apparent distress Eyes: normal inspection, EOMI, sclerae normal ENT: normal ENT inspection, pharynx normal Neck: supple, no adenopathy, trachea midline Respiratory/Chest: chest non-tender, lungs clear, normal breath sounds, no respiratory distress Cardiovascular: regular rate, rhythm, no gallop, no murmur Abdomen: normal bowel sounds, soft, no organomegaly, + tenderness Extremities: non-tender, no calf tenderness Neurologic/Psychiatric: alert, normal mood/affect, oriented x 3 Skin: normal color, warm/dry, no rash Lymphatic: no adenopathy Laboratory Results Last 24 Hours Test 05/28/16 08:05 White Blood Count 5.77 K/uL Red Blood Count 3.84 M/uL Hemoglobin 10.7 g/dL Hematocrit 31.7 % Mean Corpuscular Volume 82.6 fL Mean Corpuscular Hemoglobin 27.9 pg Mean Corpuscular Hemoglobin Concent 33.8 g/dl Platelet Count 169 K/uL Mean Platelet Volume 9.4 fL Neutrophils (%) (Auto) 64.0 % Lymphocytes (%) (Auto) 22.7 % Monocytes (%) (Auto) 9.9 % Eosinophils (%) (Auto) 2.9 % Basophils (%) (Auto) 0.2 % Neutrophils # (Auto) 3.69 K/uL Lymphocytes # (Auto) 1.31 K/uL Monocytes # (Auto) 0.57 K/uL Eosinophils # (Auto) 0.17 K/uL Basophils # (Auto) 0.01 K/uL RDW Standard Deviation 42.3 fL RDW Coefficient of Variation 13.9 % Immature Granulocyte % (Auto) 0.3 % Immature Granulocyte # (Auto) 0.02 K/uL Prothrombin Time 10.9 SECONDS Prothromb Time International Ratio 1.0 Activated Partial Thromboplast Time 31.7 SECONDS Partial Thromboplastin Ratio 1.2 Sodium Level 141 mmol/L Potassium Level 3.6 mmol/L Chloride Level 108 mmol/L Carbon Dioxide Level 23 mmol/L Anion Gap 10.0 mmol/L Blood Urea Nitrogen 8 mg/dl Creatinine 0.80 mg/dl Est Creatinine Clear Calc Drug Dose 127.2 ml/min Estimated GFR () 117.9 Estimated GFR (Non- 101.8 BUN/Creatinine Ratio 10.0 Random Glucose 88 mg/dl Calcium Level 8.5 mg/dl Assessment and Plan Early sepsis from E coli pyelonephritis with evidence of partial obstructive uropathy. Patient has been afebrile fo >24 hours, for discharge on ciprofloxacin with f/u with urology.
[2016-06-03] MEDS ORDERED: B-COTAB18 PO (07:48)
[2016-06-03] MEDS ORDERED: MULT-506 PO (07:48)
[2016-06-03] MEDS ORDERED: CPR500 PO (07:49)
[2016-06-06] MEDS ORDERED: OXYC7.5T65 PO (10:17)
== END 2016-05-28 14:27 | disposition home or self-care (01) | DRG 872 ==
LOC: ENRESERVDT → ENRESERVTM → C.EDB 16:01 → C.MS4W 19:18
PROVIDERS: ADMIT Hospitalist; ATTEND Family Medicine
DX: A41.51 Sepsis due to Escherichia coli [E. coli] (principal); N10 Acute pyelonephritis; N20.2 Calculus of kidney with calculus of ureter; F90.9 Attention-deficit hyperactivity disorder, unspecified type; Z88.0 Allergy status to penicillin; Z88.2 Allergy status to sulfonamides

== ENCOUNTER → 2016-06-03 | Outpatient (CLI) | payer OTHER ==
[~2016-06-03] MED LIST changes: +AMPH20TA2 PO; +B-COTAB18 PO; +CPR500 PO; +MULT-506 PO; +OXYC7.5T65 PO
== END | disposition home or self-care (01) ==
LOC: C.LABSPEC 16:44
PROVIDERS: ATTEND Nurse Practitioner Family
DX: N20.0 Calculus of kidney (principal); Z87.440 Personal history of urinary (tract) infections

== ENCOUNTER → 2016-06-06 | Day surgery (SDC) | payer OTHER ==
[2016-06-03 07:49] VITALS: Ht 175.3 cm; Wt 84.1 kg
--- NOTE | 2016-06-03 13:33 | DIAGNOSTIC IMAGING REPORT ---
KUB CLINICAL HISTORY: Nephrolithiasis. FINDINGS: An AP abdominal radiograph is compared to study dated 05/28/2016 and correlated with abdominal CT dated 05/26/2016. There is a nonobstructed abdominal bowel gas pattern noting moderate colonic fecal retention. A 5 mm calcification projects just above the left transverse process of L3. This may represent a ureteral calculus. An additional nonobstructing calculus is seen projecting over the left kidney. A punctate calcification is also suggested in the right kidney. The bony structures appear intact. IMPRESSION: 1. A 5 mm calcification projects just above the left transverse process of L3. This may represent an obstructing ureteral stone. 2. Additional bilateral nonobstructing renal calculi as above. Electronically signed by: Sunday Monaco M.D. 06/03/2016 1:32 PM Dictated Date/Time: 06/03/2016 1:30 PM
[~2016-06-06] VITALS: Ht 175.3 cm; Wt 84.1 kg
[~2016-06-06] MED LIST changes: +ATROPINE SULFATE 0.1 MG/ML 5ML SYR IV PRN; -CIPR-255 PO; +CIPROFLOXACIN 400MG / D5W IV SCH; +EpHEDrine SULFATE INJ 50 MG/ML AMP IV PRN; +FENTANYL CITRATE INJ 50 MCG/1 ML 2 ML VIAL IV PRN; +FENTANYL CITRATE INJ 50 MCG/1 ML 2 ML VIAL ONE; +LACTATED RINGER'S 1000ML 1,000 ML IV SCH; +LIDOCAINE HCL 2% 2 ML VIAL (20MG/ML) ONE; +MIDAZOLAM HCL 1 MG/ML 2ML VIAL ONE; -ONDA4TAB10 SL; +ONDANSETRON INJ 2 MG/ML 2 ML VIAL IV PRN; +ONDANSETRON INJ 2 MG/ML 2 ML VIAL ONE; -OXYC1TAB3 PO; +OXYCODONE/ACETAMINOPHEN 5-325 TAB PO PRN; +PROPOFOL IV EMULSION 10 MG/ML 20 ML VIAL IV ONE
--- NOTE | 2016-06-06 08:56 | DIAGNOSTIC IMAGING REPORT ---
KUB HISTORY: N20.0 Nephrolithiasis COMPARISON: KUB 06/03/2016. FINDINGS: The bowel gas pattern is unremarkable. There are no dilated loops of small bowel to suggest an obstruction. Bowel gas partially obscures the renal shadows and expected location of the ureters. No definite ureteral or bladder calculi identified. There is a small stone within the lower pole of the left kidney, unchanged. There is suggestion of a punctate stone within the interpolar region of the right kidney. No pneumoperitoneum or pneumatosis. IMPRESSION: 1. Bilateral nephrolithiasis is again noted. 2. No ureteral calculi identified. Electronically signed by: Ashutosh Meza M.D. 06/06/2016 8:54 AM Dictated Date/Time: 06/06/2016 8:52 AM
--- NOTE | 2016-06-06 09:53 | History & Physical Bridge Note ---
H&P Re-Evaluation Bridge Note: I have examined the patient, reviewed the History & Physical and in the interval since the performance of the History & Physical I have noted the following changes of clinical significance: Left side to be targeted today, renal stone, will check for ureteral calculi seen LUTS
--- NOTE | 2016-06-06 12:56 | OPERATIVE REPORT ---
DATE OF OPERATION: 06/06/2016 PREOPERATIVE DIAGNOSIS: Left renal stone. POSTOPERATIVE DIAGNOSIS: Same. PROCEDURE: Left-sided renal extracorporeal shockwave lithotripsy. SURGEON: Dr. Eugene Woodall. BRINE MAKER: None. ANESTHESIA: General anesthesia with laryngeal mask. COMPLICATIONS: None. FINDINGS: Good stone fragmentation on fluoroscopy. DETAILS OF PROCEDURE: The patient was brought to the litho suite. He was correctly identified and the stone was visualized on his most recent x-rays. After the correct time out was performed the patient was positioned over the therapy head. An adequate level of anesthesia was administered. The extracorporeal shockwave lithotripsy treatment was then commenced. Please see the [facility] sheet for complete treatment summary. After completion of the procedure the patient was taken to the recovery room in stable condition. I attest to the content of the Intraoperative Record and any orders documented therein. Any exceptio ns are noted below.
--- NOTE | 2016-06-06 13:06 | [facility] Post Operative Brief Note ---
Immediate Operative Summary Operative Date Jun 06, 2016. Pre-Operative Diagnosis Left Renal Calculi Post-Operative Diagnosis Same Procedure(s) Performed Left Extracorporeal Shock Wave Lithotripsy Surgeon Dr. Nori Woodall Senior Quality Control Inspector Surgeon(s) None Estimated Blood Loss 0 mL Findings Good stone fragmentation of stone on fluoro Specimens None Drains NA Anesthesia [facility] Complication(s) None Disposition Recovery Room / PACU
[2016-06-06 13:11] VITALS: TEMP 37
[2016-06-06 13:29] VITALS: BP 111/73; PULSE 78; O2SAT 100
--- NOTE | 2016-06-06 13:40 | Anesthesia Progress Nt - [facility] ---
Anesthesia Post Op Note Date & Time Jun 06, 2016 at 13:39 Vital Signs Pain Intensity: 0 Vital Signs Past 12 Hours Date Time Temp Pulse Resp B/P Pulse Ox O2 Delivery O2 Flow Rate FiO2 06/06/16 13:29 78 111/73 100 Room Air 06/06/16 13:11 37.0 82 112/66 97 Room Air 06/06/16 12:55 69 14 100 06/06/16 12:55 69 14 06/06/16 12:53 113/67 06/06/16 12:50 36.8 100 Room Air 06/06/16 12:50 68 9 100 06/06/16 12:50 67 9 06/06/16 12:49 76 15 06/06/16 12:49 77 15 100 06/06/16 12:48 114/77 06/06/16 12:44 65 13 100 06/06/16 12:44 66 13 06/06/16 12:43 108/66 06/06/16 12:39 67 9 06/06/16 12:39 67 9 100 06/06/16 12:38 67 15 06/06/16 12:38 66 15 116/64 100 06/06/16 12:33 64 15 111/72 100 06/06/16 12:33 64 15 06/06/16 12:32 63 14 100 06/06/16 12:32 63 14 06/06/16 12:28 111/66 06/06/16 12:27 83 9 06/06/16 12:27 36.8 73 16 112/73 100 Mask 6 06/06/16 12:27 85 9 100 06/06/16 09:17 37.0 94 16 108/69 100 Room Air Notes Mental Status: alert / awake / arousable, participated in evaluation Pt Amnestic to Procedure: Yes Nausea / Vomiting: adequately controlled Pain: adequately controlled Airway Patency, RR, SpO2: stable & adequate BP & HR: stable & adequate Hydration State: stable & adequate Anesthetic Complications: no major complications apparent
== END | disposition home or self-care (01) ==
LOC: C.RAD1850 08:48
PROVIDERS: ATTEND Urology
DX: N20.0 Calculus of kidney (principal); Z87.440 Personal history of urinary (tract) infections

== ENCOUNTER → 2016-06-20 | Outpatient (CLI) | payer OTHER ==
[~2016-06-20] MED LIST changes: -ATROPINE SULFATE 0.1 MG/ML 5ML SYR IV PRN; -CIPROFLOXACIN 400MG / D5W IV SCH; -EpHEDrine SULFATE INJ 50 MG/ML AMP IV PRN; -FENTANYL CITRATE INJ 50 MCG/1 ML 2 ML VIAL IV PRN; -FENTANYL CITRATE INJ 50 MCG/1 ML 2 ML VIAL ONE; -LACTATED RINGER'S 1000ML 1,000 ML IV SCH; -LIDOCAINE HCL 2% 2 ML VIAL (20MG/ML) ONE; -MIDAZOLAM HCL 1 MG/ML 2ML VIAL ONE; -ONDANSETRON INJ 2 MG/ML 2 ML VIAL IV PRN; -ONDANSETRON INJ 2 MG/ML 2 ML VIAL ONE; -OXYCODONE/ACETAMINOPHEN 5-325 TAB PO PRN; -PROPOFOL IV EMULSION 10 MG/ML 20 ML VIAL IV ONE
--- NOTE | 2016-06-20 11:34 | DIAGNOSTIC IMAGING REPORT ---
RIGHT SHOULDER MIN 2 VIEWS ROUTINE CLINICAL HISTORY: Right shoulder pain COMPARISON: None DISCUSSION: No fractures or dislocations of the proximal humerus are visualized. There is evidence for a right AC joint separation with widening of the acromio clavicular distance and slight irregularity of the lateral clavicular margin. IMPRESSION: Right AC joint separation. Electronically signed by: Rodrick Bolaños M.D. 06/20/2016 11:33 AM Dictated Date/Time: 06/20/2016 11:32 AM
== END | disposition home or self-care (01) ==
LOC: C.RAD1850 11:13
PROVIDERS: ATTEND Family Medicine Hospice and Palliative Medicine
DX: M25.511 Pain in right shoulder (principal)

== ENCOUNTER → 2017-06-12 | Outpatient (CLI) | payer OTHER ==
[~2017-06-12] MED LIST changes: -OXYC7.5T65 PO
--- NOTE | 2017-06-12 15:58 | DIAGNOSTIC IMAGING REPORT ---
ULTRASOUND KIDNEYS AND BLADDER CLINICAL HISTORY: Hematuria. COMPARISON STUDY: Abdominal CT dated 05/26/2016. Renal ultrasound dated 05/28/2016. TECHNIQUE: Real-time, grayscale, and color flow sonography of the kidneys and bladder is performed. Images are reviewed in the transverse and longitudinal planes. FINDINGS: Kidneys: The kidneys are normal in size and echotexture. The right kidney measures 11.7 x 4.3 x 5.7 cm and the left kidney measures 11.6 x 6.1 x 6.0 cm. There is minimal left-sided hydronephrosis. There is no hydronephrosis in the right. A 4 mm shadowing calculus is seen in the right lower pole. A 5 mm calculus is suggested in the left lower pole. There is no sonographic evidence of contour deforming renal mass lesion. No perinephric fluid is identified. Bladder: The bladder is normal in appearance. Bilateral ureteral jets were seen. IMPRESSION: 1. There is minimal left-sided hydronephrosis, similar in appearance to the May 2016 examinations. This is of indeterminant significance. A left ureteral jet was identified. 2. There is no right-sided hydronephrosis. 3. Small nonobstructing calculi are suspected bilaterally. Electronically signed by: Sunday Monaco M.D. 06/12/2017 3:57 PM Dictated Date/Time: 06/12/2017 3:54 PM
== END | disposition home or self-care (01) ==
LOC: C.ULTRBC 15:18
PROVIDERS: ATTEND Nurse Practitioner Family
DX: R35.0 Frequency of micturition (principal); R31.29 Other microscopic hematuria; Z87.442 Personal history of urinary calculi

== ENCOUNTER → 2017-06-21 | Outpatient (CLI) | payer OTHER ==
--- NOTE | 2017-06-21 09:38 | DIAGNOSTIC IMAGING REPORT ---
[facility] CLINICAL HISTORY: Nephrolithiasis. COMPARISON STUDY: CT of the abdomen and pelvis May 26, 2016 and [facility] June 06, 2016 and renal ultrasound June 12, 2017. FINDINGS: A punctate right pelvic calcification represents a phlebolith. Several bilateral renal calculi are noted, the largest of which is a 6 mm calculus within the lower pole of the left kidney. Calculus burden appears slightly increased since exam of June 06, 2016. No ureteral calculi are identified. Bowel gas pattern is normal. IMPRESSION: 1. Bilateral nephrolithiasis. 2. No ureteral calculus identified. Electronically signed by: Esequiel Gonzalez M.D. 06/21/2017 9:36 AM Dictated Date/Time: 06/21/2017 9:35 AM
== END | disposition home or self-care (01) ==
LOC: C.RAD 09:12
PROVIDERS: ATTEND Nurse Practitioner Adult Health
DX: N20.0 Calculus of kidney (principal)

== ENCOUNTER → 2017-06-22 | Outpatient (CLI) | payer OTHER | END | disposition home or self-care (01) | LOC: C.LABSPEC 10:47 | PROVIDERS: ATTEND Nurse Practitioner Adult Health | DX: Z87.440 Personal history of urinary (tract) infections (principal) ==

== ENCOUNTER → 2017-07-02 | Outpatient (CLI) | payer OTHER ==
--- NOTE | 2017-07-02 15:51 | DIAGNOSTIC IMAGING REPORT ---
ABDOMEN AND PELVIS CT WITHOUT CONTRAST CT DOSE: 418.17 mGy.cm HISTORY: Follow-up study in a patient with nephrolithiasis. Acute pelvic discomfort N20.0 Nephrolithiasis TECHNIQUE: Multiaxial CT images of the abdomen and pelvis were performed without contrast. A dose lowering technique was utilized adhering to the principles of ALARA. COMPARISON STUDY: [facility] 06/21/2017, CT 05/26/2016. FINDINGS: Lung bases are generally clear. There is no pneumatosis or pneumoperitoneum identified. The imaged inferior cardiac chambers are unremarkable. Evaluation of the solid abdominal organs is limited without the use of IV contrast. The liver, spleen, pancreas and adrenal glands are within normal limits. Gallbladder is contracted. 4 mm nonobstructing calculus seen within the inferior pole left kidney. There are approximately 3 nonobstructing calculi of the right kidney measuring up to 4 mm. There is mild fullness of the left renal pelvis and proximal left ureter without wil hydronephrosis or associated inflammatory changes. No ureteral calculi. Urinary bladder is partially collapsed. Uterus and right adnexum are unremarkable. Mild free pelvic fluid, likely physiologic. Follicular changes of the left ovary. Aorta is normal in course and caliber. No bulky adenopathy. There is no bowel obstruction identified. Moderate stool volume is seen throughout the colon. The imaged appendix appears normal on image 319 series 3 however does not seen in its entirety. High attenuating material is noted within the bowel from the right lower abdomen. Soft tissues are unremarkable. The bones appear intact. IMPRESSION: 1. Bilateral nephrolithiasis without ureteral calculi or obstructive uropathy. 2. Mild fullness of the left renal pelvis and left ureter without wil hydronephrosis may reflect sequela of recently passed calculus. No significant associated inflammatory stranding. Correlate with clinical history and urinalysis. 3. Mild free pelvic fluid, likely physiologic. 4. No evidence of acute appendicitis. 5. Mild constipation. Electronically signed by: Wilman Jefferson M.D. 07/02/2017 3:50 PM Dictated Date/Time: 07/02/2017 3:43 PM
== END | disposition home or self-care (01) ==
LOC: C.CTS 15:19
PROVIDERS: ATTEND Nurse Practitioner Adult Health
DX: N20.0 Calculus of kidney (principal)

== ENCOUNTER → 2017-07-08 | Outpatient (CLI) | payer OTHER | END | disposition home or self-care (01) | LOC: C.LABSPEC 16:32 | PROVIDERS: ATTEND Physician Assistant | DX: Z01.419 Encounter for gynecological examination (general) (routine) without abnormal findings (principal) ==

== ENCOUNTER → 2017-07-08 | Outpatient (CLI) | payer OTHER | END | disposition home or self-care (01) | LOC: C.PAPS 11:23 | PROVIDERS: ATTEND Physician Assistant | DX: Z12.4 Encounter for screening for malignant neoplasm of cervix (principal) ==

== ENCOUNTER → 2017-09-01 | Outpatient (CLI) | payer OTHER | END | disposition home or self-care (01) | LOC: C.LABSPEC 17:16 | PROVIDERS: ATTEND Physician Assistant | DX: L29.8 Other pruritus (principal) ==

== ENCOUNTER → 2017-09-08 | Outpatient (CLI) | payer OTHER | END | disposition home or self-care (01) | LOC: C.LABSPEC 13:11 | PROVIDERS: ATTEND Physician Assistant | DX: Z30.430 Encounter for insertion of intrauterine contraceptive device (principal) ==